=== PATIENT | female | born 1935 | race Caucasian/White ===

== ENCOUNTER → 2016-05-23 | Outpatient (CLI) | payer OTHER ==
[~2016-05-23] MED LIST: ASCO500T3 PO; ASPI-428 PO; ATOR-24 PO; CALC-20 PO; CHOL100010 PO; CHOL100041 PO; ESTR1CRE TOP; METHTAB2 PO; MULT-845 PO; NAPR-1169 PO; NYSCR30 EXT; OXYC1TAB3 PO; PRMVC; PSYL48.511; PSYL55.43 PO; SERT1TAB68 PO; SPIR25TA89 PO
[2016-05-23 13:13] LABS: BASO % 0.4 %; BASO ABS # 0.03 K/uL (0-0.2); COMPLETE YES; EOS % 5.4 %; HEMATOCRIT 42.6 % (37-47); IG% 0.1 %; LYMPH % 20.4 %; LYMPH ABS # 1.43 K/uL (1.2-3.4); MEAN CELL VOLUME 91.8 fL (80-100); MEAN CORPUSCULAR HEMOGLOBIN 30.6 pg (25-34); MEAN CORPUSCULAR HGB CONC 33.3 g/dl (32-36); MEAN PLATELET VOLUME 9.7 fL (7.4-10.4); MONO % 8.3 %; NEUT % 65.4 %; PLATELET COUNT 267 K/uL (130-400); RED BLOOD COUNT 4.64 M/uL (4.2-5.4); WHITE BLOOD COUNT 7.02 K/uL (4.8-10.8)
[2016-05-23 13:34] LABS: ALT/SGPT 27 U/L (12-78); AST/SGOT 18 U/L (15-37); BLOOD UREA NITROGEN 24 mg/dl (7-18); CALCIUM 9.1 mg/dl (8.5-10.1); CARBON DIOXIDE 29 mmol/L (21-32); CHLORIDE 106 mmol/L (98-107); GLUCOSE 83 mg/dl (70-99); POTASSIUM 3.9 mmol/L (3.5-5.1); SODIUM 141 mmol/L (136-145)
[2016-05-23 13:36] LABS: ALB/GLOB RATIO 1.1 (0.9-2); ALKALINE PHOSPHATASE 79 U/L (45-117)
== END | disposition home or self-care (01) ==
LOC: C.LABBC 10:21
PROVIDERS: ATTEND Family Medicine
DX: M81.0 Age-related osteoporosis without current pathological fracture (principal); Z13.0 Encounter for screening for diseases of the blood and blood-forming organs and certain disorders involving the immune mechanism

== ENCOUNTER → 2016-09-19 | Outpatient (CLI) | payer OTHER ==
--- NOTE | 2016-09-19 14:58 | DIAGNOSTIC IMAGING REPORT ---
LEFT SHOULDER MIN 2 VIEWS ROUTINE CLINICAL HISTORY: LEFT SHOULDER PAIN pain COMPARISON: None. DISCUSSION: Moderate degenerative change glenohumeral and acromioclavicular joints. No well-defined acute bony abnormality. Study is negative for fracture. No abnormal soft tissue calcifications. Mild osteopenia. There is no evidence for soft tissue swelling. IMPRESSION: Moderate degenerative change. Mild osteopenia. No acute bony abnormality. Electronically signed by: Wally Mccollum M.D. 09/19/2016 2:57 PM Dictated Date/Time: 09/19/2016 2:56 PM
[2016-09-19 17:08] LABS: ALT/SGPT 31 U/L (12-78); AST/SGOT 20 U/L (15-37); BLOOD UREA NITROGEN 22 mg/dl (7-18); BUN/CREATININE RATIO 22.3 (10-20); CALCIUM 9.1 mg/dl (8.5-10.1); CARBON DIOXIDE 33 mmol/L (21-32); CHLORIDE 102 mmol/L (98-107); CHOLESTEROL 135 mg/dl (0-200); CREATININE 0.98 mg/dl (0.60-1.20); GLUCOSE 83 mg/dl (70-99); POTASSIUM 4.2 mmol/L (3.5-5.1); SODIUM 139 mmol/L (136-145)
[2016-09-19 17:11] LABS: ALB/GLOB RATIO 1.1 (0.9-2); ALKALINE PHOSPHATASE 90 U/L (45-117); HDL CHOLESTEROL 45 mg/dl; LDL CHOLESTEROL CALCULATED 49 mg/dl; TRIGLYCERIDES 204 mg/dl (0-150); VERY LOW DENSITY LIPOPROT CALC 41 mg/dl
== END | disposition home or self-care (01) ==
LOC: C.RADBC 14:37
PROVIDERS: ATTEND Family Medicine
DX: I10 Essential (primary) hypertension (principal); E78.2 Mixed hyperlipidemia; M25.512 Pain in left shoulder

== ENCOUNTER → 2016-10-09 | Outpatient (CLI) | payer OTHER | END | disposition home or self-care (01) | LOC: C.MAMM 09:06 | PROVIDERS: ATTEND Family Medicine | DX: M81.0 Age-related osteoporosis without current pathological fracture (principal); M85.88 Other specified disorders of bone density and structure, other site ==

== ENCOUNTER → 2016-11-07 | Outpatient (CLI) | payer OTHER ==
--- NOTE | 2016-11-07 15:38 | MAMMOGRAPHY REPORT ---
BILATERAL DIGITAL SCREENING MAMMOGRAM WITH CAD: 11/07/2016 CLINICAL HISTORY: Routine screening. Patient has no complaints. TECHNIQUE: Current study was also evaluated with a Computer Aided Detection (CAD) system. Bilateral CC and MLO views were obtained. COMPARISON: Comparison is made to exams dated: 11/07/2015 mammogram, 11/01/2014 mammogram, 10/29/2013 prabhakar mogram, 10/31/2012 mammogram, 10/28/2012 mammogram, and 10/25/2011 mammogram - [facility] BREAST COMPOSITION: There are scattered areas of fibroglandular density in both breasts. FINDINGS: No suspicious masses, calcifications, or areas of architectural distortion are noted in ei ther breast. There has been no significant interval change compared to prior exams. Scattered bilater al benign-appearing calcifications are not significantly changed. A pacemaker projects over the left pectoralis muscle. IMPRESSION: ACR BI-RADS CATEGORY 2: BENIGN There is no mammographic evidence of malignancy. A 1 year screening mammogram is recommended. The pa tient will receive written notification of the results. Approximately 10% of breast cancers are not detected with mammography. A negative mammographic report should not delay biopsy if a clinically suggestive mass is present. Delmy Louise M.D. /:11/07/2016 14:56:34 Piecer: Darshana BUNCH)(M), [facility] letter sent: Normal 1/2 BI-RADS Code: ACR BI-RADS Category 2: Benign
== END | disposition home or self-care (01) ==
LOC: C.MAMM 13:57
PROVIDERS: ATTEND Family Medicine
DX: Z12.31 Encounter for screening mammogram for malignant neoplasm of breast (principal)

== ENCOUNTER → 2016-11-09 | Outpatient (CLI) | payer OTHER ==
--- NOTE | 2016-11-09 13:27 | DIAGNOSTIC IMAGING REPORT ---
RIGHT VENOUS DOPP LOWER EXT UNILAT CLINICAL HISTORY: 80 years-old Female presenting with right leg pain and clinical concern for deep venous thrombosis. TECHNIQUE: Real-time grayscale and color and spectral Doppler ultrasound imaging of the right lower extremity was performed. Compression and augmentation were also utilized. COMPARISON: None. FINDINGS: Right: Common femoral vein: Patent. Femoral vein: Patent. Greater saphenous vein: Patent. Popliteal vein: Patent. Calf veins: Patent. Other: Complex anechoic avascular collection in the popliteal fossa measuring 4.2 x 6.3 x 1.7 cm. IMPRESSION: 1. No evidence of deep venous thrombosis right lower extremity. 2. Complex cystic lesion in the popliteal fossa. In the absence of infectious symptoms, this may represent a partially septated Hernandez's cyst or chronic hematoma. Electronically signed by: Nahum Asencio M.D. 11/09/2016 1:25 PM Dictated Date/Time: 11/09/2016 1:22 PM
== END | disposition home or self-care (01) ==
LOC: C.ULTRBC 12:46
PROVIDERS: ATTEND Physician Assistant
DX: M79.604 Pain in right leg (principal)

== ENCOUNTER 2016-11-10 10:49 | Emergency (ER) | payer OTHER ==
[~2016-11-10] VITALS: Ht 154.9 cm; Wt 62.0 kg
[~2016-11-10 10:49] MED LIST changes: -CHOL100041 PO; -NAPR-1169 PO; -OXYC1TAB3 PO; -PRMVC; -PSYL48.511
[2016-11-10 10:53] VITALS: Ht 154.9 cm; Wt 62.0 kg
[2016-11-10] MEDS ORDERED: CHOL100041 PO (11:12)
[2016-11-10] MEDS ORDERED: PSYL48.511 (11:12)
[2016-11-10] MEDS ORDERED: PRMVC (11:12)
[2016-11-10 12:00] VITALS: BP 149/68; PULSE 80; TEMP 36.9; O2SAT 93
--- NOTE | 2016-11-10 12:01 | EMERGENCY ROOM VISIT NOTE ---
ED Visit Note First contact with patient: 12:00 I did evaluate and examine this patient myself. I did guide management for the patient. I agree with the APC's assessment as discussed. Please see the APC's dictation for further details. The patient is presenting with right knee pain. She has no joint swelling or signs of septic arthritis. There is no increased warmth to the knee. She did have an ultrasound yesterday which showed a cyst behind her knee. This is where she appears to be most tender. She will follow up with [facility] orthopedics. I did offer an x-ray here but she stated that she would prefer to have it done at the orthopedic office.
[2016-11-10] MEDS ORDERED: OXYC1TAB3 PO (12:03)
[2016-11-10] MEDS ORDERED: NAPR-1169 PO (12:03)
--- NOTE | 2016-11-10 12:09 | EMERGENCY ROOM VISIT NOTE ---
ED Visit Note First contact with patient: 11:39 CHIEF COMPLAINT: right knee pain HISTORY OF PRESENT ILLNESS: This 80-year-old female patient presents to the emergency department complaining of 2 day history of right knee pain. The patient did contact her PCP, and was offered an appointment for next week. She did speak with the physician assistant oceanographer who ordered an ultrasound of the right leg due to swelling and discomfort. The patient had this ultrasound completed yesterday which showed a Hernandez's cyst. The patient denies specific injury. She states the pain is radiating away from her knee down into her calf, occasionally causing cramping in her calf. The patient does report swelling swelling in the posterior aspect of the knee, but denies bruising. There is pain posteriorly and laterally on palpation. They rate the pain as burning and 9/10. The patient states they are able to walk on it however pain is worsened with weightbearing. The patient has been using a cane and her 's wheelchair when necessary to get around. No numbness or tingling. No previous injuries to this knee. No ankle, foot or hip pain. REVIEW OF SYSTEMS: A 6 system review of systems was completed with positives and pertinent negatives listed in the HPI. ALLERGIES: Tramadol, meloxicam, sulfa, Fosamax, rapaflo, macrobid MEDICATIONS: Aspirin, calcium plus vitamin D, Zoloft, multivitamin, Aldactone, vitamins C, Lipitor, nystatin, psyllium, vitamin D, Premarin, methenamine hippurate PMH: Heart disease, chronic urinary tract infections, hyperlipidemia, candidiasis SOCIAL HISTORY: Lives locally with her family. She denies drug, alcohol, tobacco use. PHYSICAL EXAM: Vital Signs: Reviewed Nurse's notes, vital signs stable. GENERAL : 80-year-old female, no acute distress, but appears in pain, well-developed, well-nourished. MENTAL STATUS: Alert, oriented to person place and time, and cooperative. MUSCULOSKELETAL: The right knee is swollen. There is no ecchymosis. There is no joint effusion present. The patient is tender posteriorly. There is no joint line tenderness. The patella does subluxate. Range of motion is limited due to pain. Strength of the quads and hamstrings is 5/5. Rocio's is negative. Bebe's and Anterior Drawer tests are negative. There is no discomfort or laxity with varus and valgus stressing. The foot and toes are warm and well-perfused. Dorsalis pedis pulse 2+. Sensation to pain and light touch is intact. Capillary refill less than 2 seconds. EMERGENCY DEPARTMENT COURSE: I examined the patient. I reviewed the patient's ultrasound which was performed yesterday. Discussed the case with Dr. Shook who is in agreement with assessment and plan. He did evaluate the patient. The patient was started on pain medication due to cyst and advised to follow-up with orthopedics at her appointment on Saturday. The patient was discharged home in good condition. I did consult with PDMP and did not find suspicious narcotics prescriptions or medications in the registry. The patient was given a short course of pain medication until she is able to follow-up with orthopedics. DIFFERENTIAL DIAGNOSIS: joint effusion, DVT, fracture, osteoarthritis, Hernandez's cyst, malignancy, and others. DIAGNOSIS: Bakers cyst DISCHARGE INSTRUCTIONS: Please use your cane to assist you with ambulation due to discomfort of right leg. For pain control, you can use acetaminophen in addition to the Naprosyn you were prescribed. You may take 1000 mg acetaminophen every 6-8 hours as needed. I would stagger this with the Naprosyn he will be taking twice daily. Please do not exceed 3000 mg acetaminophen in 24 hours. This includes acetaminophen from all sources. You've been prescribed OxyIR to use for breakthrough pain. You may take 1 tablet every 6 hours for pain not controlled by Naprosyn and acetaminophen. Please do not drive, operate machinery, or other excessive activities while taking this medication. It is illegal for you to drive while taking narcotic medication. Please be cautious with this medication, as it can increase the risk of falls in elderly patients. Please follow up with orthopedics for your regularly scheduled appointment on Saturday. Please also follow up with your PCP for further evaluation and management of the discomfort. Return to the emergency department for worsening symptoms. You should also return if you experience increased swelling, redness, streaking, difficulty with ambulation, fever, chills, excessive swelling in the knee joint, or other associated symptoms. Current/Historical Medications Scheduled Ascorbic Acid (Vitamin C), 500 MG PO BID Aspirin (Ecotrin Low Strength), 81 MG PO QAM Atorvastatin (Lipitor), 40 MG PO HS Calcium Carbonate-Vitamin D (Calcium 600 + D), 1 TAB PO QAM Cholecalciferol (D 1000), 1,000 UNITS PO DAILY Multiple Vitamins W/ Minerals (Centrum Silver Adult 50+), 1 TAB PO QAM Naproxen (Naprosyn), 500 MG PO BID Nystatin (Nystatin Cream), 0 EXT DAILY Sertraline Hcl (Zoloft), 100 MG PO QAM Spironolactone (Aldactone), 25 MG PO BID Scheduled PRN Estrogens, Conjugated (Premarin), for . Oxycodone Ir (Roxicodone Ir), 1 TAB PO Q6H PRN for Pain Miscellaneous Medications Psyllium (Eq Fiber Therapy) Allergies Coded Allergies: Silodosin (Verified Allergy, Unknown, N/V, 11/10/16) Sulfa Drugs (Verified Allergy, Unknown, Welts/Rash, 11/10/16) Reported by PT Meloxicam (Verified Adverse Reaction, Unknown, Nausea, 11/10/16) Reported by PT. Tramadol (Verified Adverse Reaction, Unknown, Nausea, 11/10/16) Reported by PT. Uncoded Allergies: SEASONAL ALLERGIES (Allergy, Unknown, Unknown, 04/17/14) Reported by PT. Vital Signs Date Time Temp Pulse Resp B/P (MAP) Pulse Ox O2 Delivery O2 Flow Rate FiO2 11/10/16 12:00 36.9 80 16 149/68 93 11/10/16 10:53 36.9 80 16 149/68 93 Room Air Departure Information Impression Primary Impression: Hernandez's cyst of knee Dispostion Home / Self-Care Condition GOOD Prescriptions Oxycodone Ir (Roxicodone Ir) 5 Mg Tab 1 TAB PO Q6H Y for Pain, #12 TAB For Initial Treatment Prov: Rosi Fernández PA-C 11/10/16 Naproxen (Naprosyn) 500 Mg Tab 500 MG PO BID, #30 TAB Prov: Rosi Fernández PA-C 11/10/16 Referrals No Doctor, Assigned (PCP) Nahum Donohue M.D. Patient Instructions ED Cyst Mary, [facility] Additional Instructions Please use your cane to assist you with ambulation due to discomfort of right leg. For pain control, you can use acetaminophen in addition to the Naprosyn you were prescribed. You may take 1000 mg acetaminophen every 6-8 hours as needed. I would stagger this with the Naprosyn he will be taking twice daily. Please do not exceed 3000 mg acetaminophen in 24 hours. This includes acetaminophen from all sources. You've been prescribed OxyIR to use for breakthrough pain. You may take 1 tablet every 6 hours for pain not controlled by Naprosyn and acetaminophen. Please do not drive, operate machinery, or other excessive activities while taking this medication. It is illegal for you to drive while taking narcotic medication. Please be cautious with this medication, as it can increase the risk of falls in elderly patients. Please follow up with orthopedics for your regularly scheduled appointment on Saturday. Please also follow up with your PCP for further evaluation and management of the discomfort. Return to the emergency department for worsening symptoms. You should also return if you experience increased swelling, redness, streaking, difficulty with ambulation, fever, chills, excessive swelling in the knee joint, or other associated symptoms. Problem Qualifiers Primary Impression: Hernandez's cyst of knee Laterality: right Qualified Codes: M71.21 - Synovial cyst of popliteal space [Hernandez], right knee
== END 2016-11-10 12:00 | disposition home or self-care (01) ==
LOC: C.EDB 10:52 → C.EDC 12:00
DX: M71.21 Synovial cyst of popliteal space [Baker], right knee (principal); E78.5 Hyperlipidemia, unspecified; Z87.440 Personal history of urinary (tract) infections; Z79.82 Long term (current) use of aspirin; Z79.899 Other long term (current) drug therapy

== ENCOUNTER → 2016-11-13 | Outpatient (CLI) | payer OTHER ==
[~2016-11-13] MED LIST changes: -CHOL100010 PO; +CHOL100041 PO; -ESTR1CRE TOP; -METHTAB2 PO; +NAPR-1169 PO; +OXYC1TAB3 PO; +PRMVC; +PSYL48.511; -PSYL55.43 PO
== END | disposition home or self-care (01) ==
LOC: C.RDSM 14:35
PROVIDERS: ATTEND Physical Medicine & Rehabilitation Sports Medicine
DX: M25.561 Pain in right knee (principal)

== ENCOUNTER 2020-09-15 08:52 | Inpatient (IN) ==
--- NOTE | 2020-08-23 10:17 | PAT Medication Instructions ---
Medication Instructions Date of Service August 23, 2020 Home Medications Calcium 600 + D(3) 1 cap PO QAM Centrum Silver Women 1 tab PO DAILY atorvastatin 40 mg PO PM cholecalciferol (vitamin D3) [Vitamin D3] 1,000 unit PO DAILY sertraline 150 mg PO QAM spironolactone 12.5 mg PO QAM vitamin C-biotin 1 tab PO BID apixaban [Eliquis] 5 mg PO BID ASK your prescriber and surgeon apixaban [Eliquis] 5 mg PO BID (in order for spinal anesthesia, Apixaban/Eliquis needs to be stopped 72 hours/3 days before surgery. Please check if okay with doctor that prescribes this to you) DO NOT take the morning of surgery Calcium 600 + D(3) 1 cap PO QAM Centrum Silver Women 1 tab PO DAILY cholecalciferol (vitamin D3) [Vitamin D3] 1,000 unit PO DAILY spironolactone 12.5 mg PO QAM vitamin C-biotin 1 tab PO BID Take morning of surgery With a small sip of water, OTHERWISE NOTHING TO EAT OR DRINK AFTER MIDNIGHT: sertraline 150 mg PO QAM Take evening before surgery atorvastatin 40 mg PO PM vitamin C-biotin 1 tab PO BID Other Notes If you have any questions please call us at [phone] or [phone] or [phone] or [phone]
--- NOTE | 2020-08-26 14:11 | Anesthesiology Consultation ---
Date of Service August 26, 2020 Assessment & Plan (1) Encounter for pre-operative examination: COVID screening: Per assessment on 08/26: Travel screen negative, no known COVID- 19 positive contacts or current COVID-19 related symptoms. Patient fully vaccinated. Surgeon arranging preop COVID testing. Awaiting results. Chart Review Chart Review: Acceptable Risk for Surgery (pending surgeon-ordered PCP and cardiology clearances) and Patient seen in Pre Admission Testing Teaching & Discussion Pre-Anesthesia Teaching/Discussion Notes: Instructed NPO after midnight before surgery,except medications with 15 cc of water. Medication instructions provided according to the PAT guidelines. History Surgery Operation Date: 09/15/20 07:15 Proposed Procedures p Left Total Hip Arthroplasty Cemented - Nahum Mathews MD Height/Weight Height: 5 ft 1 in Weight: 60.6 kg Allergies Allergy/AdvReac Type Severity Reaction Status Date / Time naproxen Allergy Intermediate Rash Verified 08/15/20 12:11 nitrofurantoin Allergy Intermediate Rash Verified 08/15/20 12:11 [From Macrobid] Sulfa (Sulfonamide Allergy Intermediate Welts/Rash Verified 08/15/20 12:11 Antibiotics) meloxicam AdvReac Mild Nausea Verified 08/15/20 12:11 silodosin AdvReac Mild N/V Verified 08/15/20 12:11 tramadol AdvReac Mild Nausea Verified 08/15/20 12:11 Medications Home Medications Medication Instructions Recorded Confirmed Last Taken Calcium 600 + D(3) 1 cap PO QAM 11/20/18 08/15/20 12/29/18 Centrum Silver Women 1 tab PO DAILY 11/20/18 08/15/20 12/29/18 atorvastatin 40 mg PO PM 11/20/18 08/15/20 12/29/18 cholecalciferol (vitamin D3) 1,000 unit PO DAILY 11/20/18 08/15/20 12/08/18 [Vitamin D3] sertraline 150 mg PO QAM 11/20/18 08/15/20 12/29/18 spironolactone 12.5 mg PO QAM 11/20/18 08/15/20 12/29/18 vitamin C-biotin 1 tab PO BID 11/20/18 08/15/20 12/29/18 apixaban [Eliquis] 5 mg PO BID 08/15/20 08/15/20 Unknown Past Medical History Medical History Anxiety Atrial fibrillation Paroxysmal Depression Diverticular disease Hyperlipidemia Hypertension Osteoarthritis Pacemaker Medtronic (initial implant 1998, generator exchanges 2006 and 2015). Implanted 2/2 SSS and sinoatrial quynh disease- Follows with Dr. Brunson/MURTAZA Exercise / Class Metabolic Activity III < 4 Walking/Shop/Light housework (+ walker) Past Family History Family History Mother Cancer Past Surgical History Surgical History History of carpal tunnel release Left + trigger finger release History of colonoscopy History of hysterectomy History of right cataract surgery History of surgery on wrist Left Hx of left cataract extraction HX: benign breast biopsy Past Anesthesia History No Hx of Anesthesia Complications and No Family Hx of Anesthesia Complications History of PONV No Hx of PONV and No Hx of Motion Sickness Social History Smoking Status: Never smoker Do You Dip or Chew Tobacco: No Hx Alcohol Use: No Hx Substance Use: No substance use type: does not use Review of Systems Patient denies chest pain, shortness of breath, dyspnea on exertion, fever, chills, cough, wheezing, palpitations. Physical Exam Vital Signs VITALS BP 126/64 P 73 TEMP 98.3 SP02 97%RA RESP 18 PHYSICAL Full cervical extension range of motion. Full TMJ range of motion. TMD 2.5 finger breaths Mallampati Score 3 Dentition: + upper/lower plate Lungs: clear throughout to auscultation Cardiac: irregular rate, regular rhythm, II/ systolic murmur Spine: normal Carotid arteries: negative bruit Extremities: no edema Testing Laboratory Results 08/26/20 14:50 08/26/20 14:50 PT 11.4 Seconds (9.0-12.0) 08/26/20 14:50 INR 1.1 (0.9-1.1) 08/26/20 14:50 APTT 31.6 Seconds (21.0-31.0) H 08/26/20 14:50 Urine Color Yellow 08/26/20 14:50 Urine Appearance Clear (Clear) 08/26/20 14:50 Urine pH 5.5 (4.5-7.5) 08/26/20 14:50 Ur Specific [place] 1.016 (1.000-1.030) 08/26/20 14:50 Urine Protein Negative (Negative) 08/26/20 14:50 Urine Glucose (UA) Negative (Negative) 08/26/20 14:50 Urine Ketones Negative (Negative) 08/26/20 14:50 Urine Nitrite Negative (Negative) 08/26/20 14:50 Ur Leukocyte Esterase Trace (Negative) H 08/26/20 14:50 Urine WBC (Auto) 1-5 /hpf (0-5) 08/26/20 14:50 Urine RBC (Auto) 0-4 /hpf (0-4) 08/26/20 14:50 U Hyaline Cast (Auto) 1-5 /lpf (0-5) 08/26/20 14:50 U Epithel Cells (Auto) 20-30 /lpf (0-5) H 08/26/20 14:50 Urine Bacteria (Auto) Negative (Negative) 08/26/20 14:50 Blood Type O Positive 08/26/20 14:50 Antibody Screen NEGATIVE 08/26/20 14:50 08/26/20 14:50 Urine Culture - Preliminary Urine,Clean Catch Gram negative bacilli Surgeon's office made aware of abnormal UA/culture. Electrocardiogram Date: 08/26/20 Atrial sensed ventricular paced rhythm at 67bpm. Echocardiogram Date: 07/29/18 EF 63%. Septal motion is abnormal consistent with right ventricular pacemaker. The regional left ventricular wall motion is otherwise normal. LVEF 63%. Grade 1 diastolic dysfunction. Mild AR/TR. Mildly enlarged proximal ascending thoracic aorta. Other Testing Pacer check (06/09/20): Dual-chamber. Medtronic. AP 4.8%. RVP 100%. 8 years battery longevity. Mode DDD. Normal dual-chamber pacemaker function. Stable pacing and sensing thresholds. Adequate battery reserve.
[2020-08-26 15:41] LABS: Basophils # (auto) 0.03 K/uL (0-0.2); Basophils % (auto) 0.3 %; Eosinophils # (auto) 0.31 K/uL (0-0.5); Eosinophils % (auto) 3.3 %; Hematocrit (blood only) 40.7 % (37-47); Hemoglobin 13.5 g/dL (12.0-16.0); Immature Granulocytes # (auto) 0.02 K/uL (0.00-0.02); Immature Granulocytes % (auto) 0.2 %; Lymphocytes # (auto) 1.33 K/uL (1.2-3.4); Lymphocytes % (auto) 14.1 %; Mean Corpuscular Hemoglobin 29.5 pg (25-34); Mean Corpuscular Hgb Conc 33.2 g/dL (32-36); Mean Corpuscular Volume 88.9 fL (80-100); Mean Platelet Volume 9.2 fL (7.4-10.4); Monocytes # (auto) 0.54 K/uL (0.11-0.59); Monocytes % (auto) 5.7 %; Neutrophils # (auto) 7.18 K/uL (1.4-6.5); Neutrophils % (auto) 76.4 %; Platelet Count 307 K/uL (130-400); RDW Coefficient of Variation 13.7 % (11.5-14.5); RDW Standard Deviation 44.6 fL (36.4-46.3); Red Blood Count 4.58 M/uL (4.2-5.4); White Blood Count 9.41 K/uL (4.8-10.8)
[2020-08-26 15:50] LABS: BUN Creatinine Ratio 21.3 (10-20); Calcium 8.9 mg/dl (8.5-10.1); Creatinine Clr Calc Pharmacy 45.2 ml/min; Est GFR (African American) 82.9; Est GFR (Non-African American) 71.5
[2020-08-26 15:55] LABS: Appearance Urine Clear (Clear); Bacteria Urine Automated Negative (Negative); Bilirubin Urine Negative (Negative); Blood Urine 2+ (Negative); Color Urine Yellow; Epithelial Cell Urine Auto 20-30 /lpf (0-5); Glucose Urine UA Negative (Negative); INR 1.1 (0.9-1.1); Ketones Urine Negative (Negative); Leukocyte Esterase Urine Trace (Negative); Nitrite Urine Negative (Negative); Partial Thromboplastin Ratio 1.2; Partial Thromboplastin Time 31.6 Seconds (21.0-31.0); Protein Urine Negative (Negative); Prothrombin Time 11.4 Seconds (9.0-12.0); RBC Urine Automated 0-4 /hpf (0-4); Specific Gravity Urine 1.016 (1.000-1.030); Urobilinogen Urine Negative (Negative); pH Urine 5.5 (4.5-7.5)
--- NOTE | 2020-08-26 16:08 | Electrocardiogram Report ---
Test Reason : Blood Pressure : / mmHG Vent. Rate : 067 BPM Atrial Rate : 067 BPM P-R Int : 120 ms QRS Dur : 170 ms QT Int : 442 ms P-R-T Axes : 072 -72 077 degrees QTc Int : 467 ms Atrial-sensed ventricular-paced rhythm Abnormal ECG When compared with ECG of 22-SEP-2014 11:34, Vent. rate has decreased BY 27 BPM Confirmed by Donnell Vila ([id number]) on 08/26/2020 4:08:15 PM Referred By: Nahum Mathews Confirmed By:Donnell Vila
--- NOTE | 2020-08-31 13:48 | History & Physical Report ---
Date of Service August 31, 2020 Assessment & Plan Admission and Anticipated Discharge Date Admission Date: PRE-OP Diagnosis: Left hip osteoarthritis Planned Procedure: Left total hip arthroplasty, cemented Plan: Patient is scheduled to undergo this procedure at [facility] with Dr. Nahum Mathews on September 15, 2020. Risks and complications of the procedure such as: Infection, bleeding, pain, scarring, nerve blood vessel damage, weakness, wound problems, stiffness, incomplete relief of symptoms, hardware failure, hardware loosening, wear, fracture, tendon or ligament injury, dislocation, leg length inequality, blood clots, embolism, heart attack, stroke and were explained to the patient at her visit today by Dr. Mathews. Informed consent from the procedure was obtained. Patient also understands risks of proceeding with surgical intervention during the COVID-19 pandemic. Currently she is asymptomatic and understands that she will need to be tested 1 week prior to surgery. Patient states that she has a medical clearance bismark ointment with Dr. Correa's PA on August 29. She also has a cardiac clearance appointment with Wally Brunson's PA on the September 06. Patient is scheduled to meet with anesthesia at the hospital later today. While there she will obtain a CBC with differential, complete metabolic panel, PT/INR, blood type and screen, urinalysis, urine culture and sensitivity, EKG, hemoglobin A1c and a nasal culture for MRSA. During today's visit we reviewed the total hip packet, discussed total hip precautions talked about purchasing a hip kit, I raised toilet seat and a shower chair for after surgery use. Patient states that she has a walker she will bring with her on the day of the procedure. She states that she was already watched one of the Zoom lectures offered by [facility] in regards to her replacement surgery. She is also discussed the antibiotic use with her dentist prior to dental procedures or cleanings. I advised the patient that she will be discharged home on an opioid analgesic for postoperative pain control, and anti-inflammatory medication and we recommend purchasing extra strength Tylenol for supplemental pain control. She will restart her Eliquis for DVT prophylaxis. Patient is scheduled for 2- week postoperative follow-up with myself on September 30 at 1:30 PM. If she has questions or concerns should arise prior to her surgery, she will contact clini c. History of Present Illness Chief Complaint: Chief Complaint: Left hip pain Primary Care Provider: Elyssa Tolliver DO History of Present Illness (including history relevant to procedure): This 84-year-old female presents the clinic today for preoperative history and physical. She has had quite severe pain in her left hip since the fall of 2019. She has tried taking Tylenol and doing physical therapy since March. Unfortunately, this has not helped. She feels aching in her groin. In the last day or so, she has had some pain going all the way down her leg, but typically the pain is all in her groin. She lives with her , who has some medical problems as well. She has family nearby, however. At their house, the laundry is down in the basement, but otherwise everything is on 1 level. She has medical history significant for arrhythmia that she has been on a pacemaker for many years. She has been on Eliquis for the last 1 year due to what sounds like some motion abnormalities on echocardiogram. She has never personally had a blood clot, she states. She does state that she bruises easily, however. Review Of Systems: A 14 point review of systems performed is unremarkable except for those things stated in the HPI and past medical history. Past Medical History: Problems: Pre-op exam Arthritis of left hip Lumbar spondylosis Primary osteoarthritis of right knee Spondylosis Lumbago Fractured coccyx Left carpal tunnel syndrome Trigger finger Trigger finger Hand paresthesia Radius distal fracture Hyperlipidemia Asthma Anxiety/depression Pacemaker Procedure History Procedure Procedure Date Comments Pacemaker D&C Jaw surgery Hysterectomy Carpal tunnel release Trigger finger release Cataract excision 1998, 2006, 2016 1976 1997 1983 2015 2014 2018 Allergies and Sensitivities: Fosamax(unknown) nitrofurantoin(unknown) Macrobid(unknown) Naprosyn(vomiting) Rapaflo meloxicam traMADol sulfa drugs Current Home Meds: (Last Updated 08/26 13:09) apixaban (Eliquis 5 mg oral tablet) 5 mg PO bid ascorbic acid (Vitamin C) 50 mg po bid aspirin (Ecotrin) 81 mg PO Daily atorvastatin 40 mg PO qhs calcium and vitamin D combination (Calcium 600+D) 1 tab PO tid ergocalciferol (Vitamin D2) multivitamin with iron (Iron 100 Plus) multivitamin with minerals (Centrum Silver Ultra Women's) sertraline 100 mg PO Daily spironolactone 25 mg PO unknown medication nystatin and triamcinolone acetonige cream when needed for prevention of fungal infection Initial Wt: 08/26 60.7 kg 134 lb Allergies Allergy/AdvReac Type Severity Reaction Status Date / Time naproxen Allergy Intermediate Rash Verified 08/15/20 12:11 nitrofurantoin Allergy Intermediate Rash Verified 08/15/20 12:11 [From Macrobid] Sulfa (Sulfonamide Allergy Intermediate Welts/Rash Verified 08/15/20 12:11 Antibiotics) meloxicam AdvReac Mild Nausea Verified 08/15/20 12:11 silodosin AdvReac Mild N/V Verified 08/15/20 12:11 tramadol AdvReac Mild Nausea Verified 08/15/20 12:11 Home Medications Medication Instructions Recorded Confirmed Type Calcium 600 + D(3) 1 cap PO QAM 11/20/18 08/15/20 History Centrum Silver Women 1 tab PO DAILY 11/20/18 08/15/20 History atorvastatin 40 mg PO PM 11/20/18 08/15/20 History cholecalciferol (vitamin D3) 1,000 unit PO DAILY 11/20/18 08/15/20 History [Vitamin D3] sertraline 150 mg PO QAM 11/20/18 08/15/20 History spironolactone 12.5 mg PO QAM 11/20/18 08/15/20 History vitamin C-biotin 1 tab PO BID 11/20/18 08/15/20 History apixaban [Eliquis] 5 mg PO BID 08/15/20 08/15/20 History Past Med/Surg History Medical History Anxiety Atrial fibrillation Paroxysmal Depression Diverticular disease Hyperlipidemia Hypertension Osteoarthritis Pacemaker Medtronic (initial implant 1998, generator exchanges 2006 and 2015). Implanted 2/2 SSS and sinoatrial quynh disease- Follows with Dr. Brunson/Michael[facility] Surgical History History of carpal tunnel release Left + trigger finger release History of colonoscopy History of hysterectomy History of right cataract surgery History of surgery on wrist Left Hx of left cataract extraction HX: benign breast biopsy Family History Mother Cancer Social History Smoking Status: Never smoker Second Hand Exposure: No; Hx Alcohol Use: No Hx Substance Use: No Preferred Language: Panamanian Communication Ability: Effective Welfare Service Aide Required: No Beliefs That Will Affect Care: None Current Living Situation: Spouse Feels Safe at Home: Yes Assistive Devices: Glasses Review of Systems All systems reviewed & are unremarkable except as noted in Subjective Physical Exam Physical Exam: Physical Exam: (relevant to the procedure, including heart and lung evaluation) General: Alert and oriented x3 with proper grooming and hygiene Eyes: Pupils are equal reactive to light with accommodation. Extraocular muscles are intact Throat: Deferred due to COVID-19 precautions Cardiac: Regular rate and rhythm with no murmurs or gallops appreciated Lungs: Clear to auscultation throughout with no wheezing, rales or rhonchi Abdomen: Nonobese, nondistended, nontender with normal active bowel sounds Extremities: Left hip exam reveals the patient to have a positive Onofre test with a flexion contracture of approximately 15 degrees. She flexes up to 85 degrees. External rotation is limited to 40 degrees. Internal rotation is to 0 degrees. She has a positive Stinchfield test. Neuro: Cranial nerves II through XII are intact no motor or sensory deficit Skin: Normal in appearance with no open skin areas or discharge Results & Data ([facility]) Laboratory Results Lab Results 08/26/20 08/26/20 08/26/20 Range/Units 14:25 14:50 14:50 WBC 9.41 (4.8-10.8) K/uL RBC 4.58 (4.2-5.4) M/uL Hgb 13.5 (12.0-16.0) g/dL Hct 40.7 (37-47) % MCV 88.9 (80-100) fL MCH 29.5 (25-34) pg MCHC 33.2 (32-36) g/dL RDW Std Deviation 44.6 (36.4-46.3) fL RDW Coeff of Leslye 13.7 (11.5-14.5) % Plt Count 307 (130-400) K/uL MPV 9.2 (7.4-10.4) fL Immature Gran % (Auto) 0.2 % Neut % (Auto) 76.4 % Lymph % (Auto) 14.1 % [place] % (Auto) 5.7 % Eos % (Auto) 3.3 % Baso % (Auto) 0.3 % Neut # (Auto) 7.18 H (1.4-6.5) K/uL Lymph # (Auto) 1.33 (1.2-3.4) K/uL [place] # (Auto) 0.54 (0.11-0.59) K/uL Eos # (Auto) 0.31 (0-0.5) K/uL Baso # (Auto) 0.03 (0-0.2) K/uL Immature Gran # (Auto) 0.02 (0.00-0.02) K/uL PT (9.0-12.0) Seconds INR (0.9-1.1) APTT (21.0-31.0) Seconds PTT Ratio Sodium (136-145) mmol/L Potassium (3.5-5.1) mmol/L Chloride (98-107) mmol/L Carbon Dioxide (21-32) mmol/L Anion Gap (3-11) BUN (7-18) mg/dl Creatinine (0.6-1.2) mg/dl Est Cr Clr Drug Dosing ml/min Est GFR ( Amer) Est GFR (Non-Af Amer) BUN/Creatinine Ratio (10-20) Glucose (70-99) mg/dl Calcium (8.5-10.1) mg/dl Urine Color Urine Appearance (Clear) Urine pH (4.5-7.5) Ur Specific [place] (1.000-1.030) Urine Protein (Negative) Urine Glucose (UA) (Negative) Urine Ketones (Negative) Urine Blood (Negative) Urine Nitrite (Negative) Urine Bilirubin (Negative) Urine Urobilinogen (Negative) Ur Leukocyte Esterase (Negative) Urine WBC (Auto) (0-5) /hpf Urine RBC (Auto) (0-4) /hpf U Hyaline Cast (Auto) (0-5) /lpf U Epithel Cells (Auto) (0-5) /lpf Urine Bacteria (Auto) (Negative) Nasal Screen MRSA (PCR) Negative (Negative) Blood Type O Positive Antibody Screen NEGATIVE 08/26/20 08/26/20 08/26/20 Range/Units 14:50 14:50 14:50 WBC (4.8-10.8) K/uL RBC (4.2-5.4) M/uL Hgb (12.0-16.0) g/dL Hct (37-47) % MCV (80-100) fL MCH (25-34) pg MCHC (32-36) g/dL RDW Std Deviation (36.4-46.3) fL RDW Coeff of Leslye (11.5-14.5) % Plt Count (130-400) K/uL MPV (7.4-10.4) fL Immature Gran % (Auto) % Neut % (Auto) % Lymph % (Auto) % [place] % (Auto) % Eos % (Auto) % Baso % (Auto) % Neut # (Auto) (1.4-6.5) K/uL Lymph # (Auto) (1.2-3.4) K/uL [place] # (Auto) (0.11-0.59) K/uL Eos # (Auto) (0-0.5) K/uL Baso # (Auto) (0-0.2) K/uL Immature Gran # (Auto) (0.00-0.02) K/uL PT 11.4 (9.0-12.0) Seconds INR 1.1 (0.9-1.1) APTT 31.6 H (21.0-31.0) Seconds PTT Ratio 1.2 Sodium 140 (136-145) mmol/L Potassium 4.0 (3.5-5.1) mmol/L Chloride 109 H (98-107) mmol/L Carbon Dioxide 29 (21-32) mmol/L Anion Gap 2.0 L (3-11) BUN 16 (7-18) mg/dl Creatinine 0.76 (0.6-1.2) mg/dl Est Cr Clr Drug Dosing 45.2 ml/min Est GFR ( Amer) 82.9 Est GFR (Non-Af Amer) 71.5 BUN/Creatinine Ratio 21.3 H (10-20) Glucose 84 (70-99) mg/dl Calcium 8.9 (8.5-10.1) mg/dl Urine Color Yellow Urine Appearance Clear (Clear) Urine pH 5.5 (4.5-7.5) Ur Specific [place] 1.016 (1.000-1.030) Urine Protein Negative (Negative) Urine Glucose (UA) Negative (Negative) Urine Ketones Negative (Negative) Urine Blood 2+ H (Negative) Urine Nitrite Negative (Negative) Urine Bilirubin Negative (Negative) Urine Urobilinogen Negative (Negative) Ur Leukocyte Esterase Trace H (Negative) Urine WBC (Auto) 1-5 (0-5) /hpf Urine RBC (Auto) 0-4 (0-4) /hpf U Hyaline Cast (Auto) 1-5 (0-5) /lpf U Epithel Cells (Auto) 20-30 H (0-5) /lpf Urine Bacteria (Auto) Negative (Negative) Nasal Screen MRSA (PCR) (Negative) Blood Type Antibody Screen Diagnostic Findings Studies (relevant to the procedure): X-rays that were done back in February 2020 are reviewed. These showed [id number] arthritis in the left hip. She also has moderately severe right hip arthritis as well.
[~2020-09-15 08:52] MED LIST changes: +ACETAMINOPHEN 500 MG TAB PO SCH; -ASCO500T3 PO; -ASPI-428 PO; -ATOR-24 PO; +BUPIVACAINE 0.5 % 5 MG/1 ML PF 10ML VIAL ONE; -CALC-20 PO; -CHOL100041 PO; +FAMOTIDINE 20 MG TAB PO SCH; +LR 15ML/HR IV SCH; +LR 60ML/HR IV SCH; +METOCLOPRAMIDE HCL 10 MG TABLET PO SCH; -MULT-845 PO; -NAPR-1169 PO; -NYSCR30 EXT; -OXYC1TAB3 PO; -PRMVC; -PSYL48.511; +ROPIVACAINE 0.5% HCL/PF 150 MG, BUPIVACAINE 0.75% MPF 20 ML, EPINEPHrine 0.15 MG, Ketor... INFIL SCH; -SERT1TAB68 PO; -SPIR25TA89 PO; +Scopolamine 1 MG TDSY TD SCH; +TRANEXAMIC ACID 1,000 MG **IV Intra-op IV SCH; +TRANEXAMIC ACID 1,000 MG **IV Pre-op IV SCH; +ceFAZolin 2000MG 2,000 MG/15 ML SYR IV SCH; +dexAMETHasone 4 MG TAB PO SCH
--- NOTE | 2020-09-15 09:36 | History & Physical Bridge Note ---
Date of Service September 15, 2020 History & Physical Bridge Note I have examined the patient, reviewed the History & Physical and in the interval since the performance of the History & Physical I have noted the following changes of clinical significance: no changes noted
[2020-09-15] MEDS ORDERED: ePHEDrine sulfate 50 MG/ML AMP IV PRN (10:43)
[2020-09-15] MEDS ORDERED: ONDANSETRON INJ 2 MG/ML 2 ML VIAL IV PRN ×2 (10:43→14:19)
[2020-09-15] MEDS ORDERED: ATROPINE SULFATE 0.1 MG/ML 10ML SYR IV PRN (10:43)
[2020-09-15] MEDS ORDERED: fentaNYL citrate 100 MCG/2 ML VIAL IV PRN (10:43)
[2020-09-15] MEDS ORDERED: MIDAZOLAM HCL 1 MG/ML 2ML VIAL ONE (11:01)
[2020-09-15] MEDS ORDERED: PROPOFOL IV EMULSION 10 MG/ML 20 ML VIAL IV ONE ×2 (11:01→13:20)
[2020-09-15] MEDS ORDERED: fentaNYL citrate 100 MCG/2 ML VIAL ONE (11:02)
[2020-09-15] MEDS ORDERED: ORTHO JOINT ANESTHETIC ONE (11:09)
[2020-09-15] MEDS ORDERED: ePHEDrine sulfate 50 MG/ML SYR ONE (12:13)
[2020-09-15] MEDS ORDERED: PHENYLEPHRINE 100MCG/ML 5ML SYR ONE (12:14)
[2020-09-15] MEDS ORDERED: LIDOCAINE HCL 2% 2 ML VIAL/AMP(20MG/ML) INFIL ONE (13:49)
--- NOTE | 2020-09-15 14:18 | Operative Report ---
Post Operative Report Pre & Post Diagnosis Operation Date: 09/15/20 11:45 Pre-Op Diagnosis: Left Hip Arthritis Post-Op Diagnosis: Left Hip Arthritis I identified the patient and participated in the time-out.: Yes Procedure Operation Date: 09/15/20 11:45 Actual Procedures p Left Total Hip Arthroplasty Cemented(Left) - Nahum Mathews MD Surgeon Nahum Mathews MD Etl Lead Nadia Madrid PALaurie Estimated Blood Loss 100 Findings Consistent with Post-Op Diagnosis Specimens femoral head Complications none Disposition Accompanied Patient To Recovery: No Disposition: Recovery Room Description of Procedure I was present during the entire case assisting with positioning, prepping, draping, wound retraction, wound closure, dressing and abduction pillow placement. No fellow present. Please see Dr. Mathews procedure note for spe cifics of the case. I attest to the content of the Intraoperative Record and any orders documented therein. Any exceptions are noted below.
--- NOTE | 2020-09-15 14:18 | Operative Report ---
Post Operative Report Pre & Post Diagnosis Operation Date: 09/15/20 11:45 Pre-Op Diagnosis: Left Hip Arthritis Post-Op Diagnosis: Left Hip Arthritis I identified the patient and participated in the time-out.: Yes Procedure Operation Date: 09/15/20 11:45 Actual Procedures p Left Total Hip Arthroplasty Cemented(Left) - Nahum Mathews MD Surgeon Nahum Mathews MD Seat Mender MARILIN Madrid PA-C. No resident or fellow was available to assist. Estimated Blood Loss 100 Findings Consistent with Post-Op Diagnosis Specimens Femoral head, left Anesthesia Type Spinal Complications none Disposition Accompanied Patient To Recovery: No Disposition: Recovery Room Indications 84-year-old female with left hip pain refractory to conservative management. X- rays show [id number] arthritis. I had a long discussion with her about the risks and benefits of surgery, alternatives to surgery, and expected outcomes. After reviewing all these she elected to proceed with surgery. All questions were answered. Informed consent was signed. Description of Procedure Patient was identified in the preoperative holding area and the surgical site, left hip, was marked. A spinal anesthetic was placed, then the patient was brought back to the main operating room, placed in the operating table and moved into the lateral decubitus position. Axillary roll was placed. All bony prominences were padded. Perioperative antibiotics and tranexamic acid 1 gram IV were administered. Operative extremity was prepped and draped in the normal sterile fashion. Prior to incision a multidisciplinary timeout was called. All in the room were in agreement. We began by making an incision for a posterior approach to the hip. We dissected down through subcutaneous tissues to the level of the fascia. The fascia was incised in line with the incision. Charnley bow was placed. The trochanteric bursa was excised. The piriformis and short external rotators were dissected off the posterior aspect of the hip. A box cut was made in the capsule. The femoral head was dislocated. The femoral neck cut was made at our preoperative template. The acetabulum was then exposed. The labrum was sharply excised. Contents of the cotyloid fossa were removed with electrocautery. We then began reaming at a size 8 mm less than our preoperative template. We reamed up by 1 [address] increments [address] the way up to a size 56 mm cup. This gave us good bleeding cancellus bone circumferentially. The acetabulum was then irrigated out and dried. The real Kaiser Gription cup was then impacted down into position with 45 degrees of lateral opening and 25 degrees of anteversion. 2 cancellous bone screws were placed up into the ilium. Excellent fixation was obtained. Acetabular trial component for a dual mobility cup was then placed. Next we turned our attention to the femur. The lateral neck was removed with a box osteotome. Intramedullary guide was used followed by the lateralizing reamer. We then broached all the way up to a size 4. We began trialing with a standard offset neck and a +1.5 head. Hip was reduced. Leg lengths were symmetric. The hip was stable in extension and external rotation, and stable in the sleeper position. At 90 degrees of hip flexion the hip could be internally rotated 55 degrees before levering out of the cup. I was very happy with the stability exam. Therefore the hip was dislocated and the femoral trial was removed. The acetabulum was reexposed and the trial liner was removed. The metal liner was then impacted into position. Harris taper engaged appropriately. We then reexposed the femur. The femoral canal was irrigated and dried. Cement restrictor was placed. Cement was mixed on the back table and pressurized in the femoral canal. The real size 4 standard offset cemented [place] femoral stem was opened up. This was impacted down into position. It sat at the same level as the femoral trial. Femoral trial was held in this position until the cement had completely cured. The dual mobility liner and 28 mm, +1.5 ceramic femoral head was opened up and gently impacted down onto the trunnion. The hip was atraumatically reduced. Another 1 gram of IV tranexamic acid was started prior to closure. The wound was irrigated out with sterile Betadine solution. The periarticular injection cocktail was then placed. The short external rotators, piriformis, and posterior capsule were repaired through drill holes in the greater trochanter using #2 Vicryl. The fascia was run with a looped #1 PDS. The subcutaneous layer was closed with #1 PDS. The dermal layer was closed with 2-0 Vicryl. Zip line was used for the skin followed by a Silverlon dressing. A compressive dressing was then placed. The patient was then rolled supine. Leg lengths were rechecked and were symmetric. An abduction pillow was placed. Sedation was lifted and the patient was transferred to recovery room in stable condition. Summary of implants: Depuy Kaiser Gription Acetabular Shell Sector Cup, 56 mm outer diameter 2 Kaiser Cancellous bone screws, measuring 40 and 20 mm in length 2 batches of Simplex P cement 11 mm cementralizer DePuy [place] Femoral stem with [place], 12/14 taper, size [] 28 mm ceramic femoral head with +1.5 offset 56/49 dual mobility liner Postoperative course: Patient will be admitted to the hospital from the recovery room. Patient will be weightbearing as tolerated with posterior hip precautions. Aspirin for DVT prophylaxis I attest to the content of the Intraoperative Record and any orders documented therein. Any exceptions are noted below.
[2020-09-15] MEDS ORDERED: ALUMINUM/MAGNESIUM SUSP 30 ML UDC PO PRN (14:19)
[2020-09-15] MEDS ORDERED: NALOXONE HCL 0.4 MG/1 ML VIAL/CARP IV PRN (14:19)
[2020-09-15] MEDS ORDERED: oxyCODONE HCL IR 5 MG TAB (IMMEDIATE RELEASE) PO PRN (14:19)
[2020-09-15] MEDS ORDERED: MAGNESIUM HYDROXIDE SUSP 30 ML UDC PO PRN (14:19)
[2020-09-15] MEDS ORDERED: HYDROmorphone INJ 0.5 MG/0.5 ML SYR IV PRN (14:19)
[2020-09-15] MEDS ORDERED: METOCLOPRAMIDE HCL INJ 5 MG/ML 2 ML VIAL IV PRN (14:19)
[2020-09-15] MEDS ORDERED: diphenhydrAMINE 50 MG/ML VIAL IV PRN (14:19)
[2020-09-15] MEDS ORDERED: bisacodyL 10 MG SUPP PR PRN (14:19)
--- NOTE | 2020-09-15 14:48 | XRay Report ---
XR pelvis 1-2V routine HISTORY: 84 years-old Female Post Surgical left hip total joint arthroplasty COMPARISON: Pelvis radiograph 08/26/2020 TECHNIQUE: AP view the pelvis FINDINGS: Moderate right hip osteoarthritis. Left hip total joint arthroplasty. Expected postsurgical soft tiss ue swelling and deep tissue air surrounding the left hip. No acute fracture, malalignment or unexpect ed opaque foreign body. Moderate degeneration of the pubic symphysis. IMPRESSION: Left hip total joint arthroplasty with expected postoperative changes. ACT 112: Negative or not required by law. The above report was generated using voice recognition software. It may contain grammatical, syntax o r spelling errors. Electronically signed by: Sal Perez M.D. 09/15/2020 2:47 PM
--- NOTE | 2020-09-15 15:14 | Anesthesiology Progress Note ---
Date of Service September 15, 2020 Anesthesia Post Procedure Vital Signs Vital Signs: Temp Pulse Pulse Resp BP Pulse Ox 09/15/20 14:45 98.1 F 71 21 122/55 L 98 09/15/20 14:35 79 21 104/59 L 94 09/15/20 14:25 75 16 113/50 L 98 09/15/20 14:19 97.2 F L 75 18 114/51 L 98 09/15/20 09:21 97.0 F L 91 H 20 129/77 93 Transfer of Care Handoff Completed per policy Notes Mental Status: alert / awake / arousable and participated in evaluation Patient Amnestic to Procedure: Yes Nausea / Vomiting: adequately controlled Pain: adequately controlled Airway Patency, RR, SpO2: stable & adequate BP & HR: stable & adequate Hydration State: stable & adequate Neuraxial Anesthesia: was administered and sensory block is resolving Anesthetic Complications: no major complications apparent and Pt Satisfied with anesthetic care
[2020-09-15] MEDS: Scopolamine CHECK PATCH PLACEMENT SCH ×2 (15:16→23:05)
[2020-09-15] MEDS: SODIUM CHLORIDE 0.9% 1000ML 1,000 ML IV SCH (15:44)
[2020-09-15] MEDS ORDERED: TRANEXAMIC ACID / 0.7% NACL 1,000 MG/100 ML BAG IV SCH (20:30)
[2020-09-15] MEDS: ceFAZolin 2000MG 2,000 MG/15 ML SYR IV SCH (20:47)
[2020-09-15] MEDS: DOCUSATE SODIUM 100 MG CAP PO SCH (20:53)
[2020-09-15] MEDS: ACETAMINOPHEN 500 MG TAB PO SCH (20:54)
[2020-09-15] MEDS ORDERED: SENNA 8.6 MG TAB PO SCH (21:00)
[2020-09-15] MEDS ORDERED: [UNRECOGNIZED DRUG - OTHER] PO SCH (21:00)
[2020-09-15] MEDS ORDERED: BIOTIN PO SCH (21:00)
[2020-09-15] MEDS ORDERED: ATORVASTATIN 40 MG TAB PO SCH (21:00)
[2020-09-16] MEDS: SODIUM CHLORIDE 0.9% 1000ML 1,000 ML IV SCH (01:35)
[2020-09-16] MEDS: ceFAZolin 2000MG 2,000 MG/15 ML SYR IV SCH (04:56)
[2020-09-16] MEDS: ACETAMINOPHEN 500 MG TAB PO SCH (05:01)
[2020-09-16 06:29] LABS: Hematocrit (blood only) 33.9 % (37-47); Immature Granulocytes # (auto) 0.02 K/uL (0.00-0.02); Immature Granulocytes % (auto) 0.2 %; Lymphocytes # (auto) 0.63 K/uL (1.2-3.4); Lymphocytes % (auto) 6.3 %; Mean Corpuscular Hemoglobin 29.3 pg (25-34); Mean Corpuscular Hgb Conc 32.4 g/dL (32-36); Mean Corpuscular Volume 90.4 fL (80-100); Mean Platelet Volume 9.1 fL (7.4-10.4); Monocytes # (auto) 0.62 K/uL (0.11-0.59); Monocytes % (auto) 6.2 %; Neutrophils % (auto) 87.3 %; Platelet Count 224 K/uL (130-400); RDW Standard Deviation 46.4 fL (36.4-46.3); Red Blood Count 3.75 M/uL (4.2-5.4); White Blood Count 10.07 K/uL (4.8-10.8)
[2020-09-16 07:07] LABS: BUN Creatinine Ratio 24.3 (10-20); Calcium 7.9 mg/dl (8.5-10.1); Creatinine Clr Calc Pharmacy 37.4 ml/min; Est GFR (African American) 66.7 ml/min; Est GFR (Non-African American) 57.5 ml/min; Potassium 4.1 mmol/L (3.5-5.1)
[2020-09-16] MEDS ORDERED: dexAMETHasone 4 MG TAB PO SCH (08:00)
[2020-09-16] MEDS: Scopolamine CHECK PATCH PLACEMENT SCH ×3 (08:49→09:00)
[2020-09-16] MEDS: DOCUSATE SODIUM 100 MG CAP PO SCH (08:50)
[2020-09-16] MEDS ORDERED: SPIRONOLACTONE 12.5 MG TAB PO SCH (09:00)
[2020-09-16] MEDS ORDERED: MULTIVITAMIN TAB PO SCH (09:00)
[2020-09-16] MEDS ORDERED: CEROVITE ADV FORMULA TAB PO SCH (09:00)
[2020-09-16] MEDS ORDERED: APIXABAN 5 MG TABLET PO SCH (09:00)
[2020-09-16] MEDS ORDERED: CALCIUM 600MG + VIT D 400 IU TAB PO SCH (09:00)
[2020-09-16] MEDS ORDERED: CHOLECALCIFEROL 1,000 UNITS 25 MCG TAB PO SCH (09:00)
[2020-09-16] MEDS ORDERED: SERTRALINE HCL 50 MG TABLET PO SCH (09:00)
--- NOTE | 2020-09-16 09:47 | Orthopedic Progress Note ---
Date of Service September 16, 2020 Assessment & Plan (1) S/P total hip arthroplasty: Total hip precautions were reviewed Weightbearing as tolerated with walker assistance PT/OT DVT prophylaxis with Eliquis and HOWARD stockings Pain control with p.o. medication Ice with EZ WRAP Abduction pillow use x6 weeks postoperatively Plan on discharge home today with in-home physical therapy for the first [address] dressing in [address] until 2-week follow-up Follow-up with [facility] orthopedics as previously scheduled With questions contact our clinic at area code [phone] Admission and Anticipated Discharge Date Admission Date: September 15, 2020 Subjective This 84-year-old female is day 1 status post left total hip arthroplasty. She is currently sitting in bedside chair eating her breakfast. She states she has no pain whatsoever. She states she has been able to ambulate around her room with a walker and transition from her bed to the chair and from the chair to the bathroom without difficulty. She states that she has been doing the range of motion exercises that were provided to her earlier in her discharge packet. Currently she denies chest pain, shortness of breath, fever, chills, sweats, lethargy, weakness or numbness or tingling in the left lower extremity. Review of Systems Review of Systems: All systems reviewed & are unremarkable except as noted in Subjective Physical Exam Physical Exam: Left hip: Patient is easily able to perform a straight leg raise test and actively dorsi and plantarflex her foot. Her outer dressing was removed and Silverlon was intact clean and dry. Knee range of motion is from 0- 90. Patient experiences no pain with light passive internal or external hip rotation. Logroll test negative. Her peripheral pulses are 2+. Her capillary fill is less than 2 seconds. She is neurovascularly intact in the left lower extremity. Results & Data ([facility]) Vital Signs (Past 12 Hours) Vital Signs Temp Pulse Resp BP Pulse Ox 09/16/20 07:29 36.6 C 60 16 98/53 L 94 09/16/20 05:22 114/62 09/16/20 03:42 36.7 C 63 15 92/47 L 92 09/15/20 22:54 36.7 C 67 16 93/51 L 94 Laboratory Results 09/16/20 09/16/20 Range/Units 06:18 06:18 WBC 10.07 (4.8-10.8) K/uL RBC 3.75 L (4.2-5.4) M/uL Hgb 11.0 L (12.0-16.0) g/dL Hct 33.9 L (37-47) % MCV 90.4 (80-100) fL MCH 29.3 (25-34) pg MCHC 32.4 (32-36) g/dL RDW Std Deviation 46.4 H (36.4-46.3) fL RDW Coeff of Leslye 14.0 (11.5-14.5) % Plt Count 224 (130-400) K/uL MPV 9.1 (7.4-10.4) fL Immature Gran % (Auto) 0.2 % Neut % (Auto) 87.3 % Lymph % (Auto) 6.3 % [place] % (Auto) 6.2 % Eos % (Auto) 0.0 % Baso % (Auto) 0.0 % Neut # (Auto) 8.80 H (1.4-6.5) K/uL Lymph # (Auto) 0.63 L (1.2-3.4) K/uL [place] # (Auto) 0.62 H (0.11-0.59) K/uL Eos # (Auto) 0.00 (0-0.5) K/uL Baso # (Auto) 0.00 (0-0.2) K/uL Immature Gran # (Auto) 0.02 (0.00-0.02) K/uL Sodium 141 (136-145) mmol/L Potassium 4.1 (3.5-5.1) mmol/L Chloride 111 H (98-107) mmol/L Carbon Dioxide 26 (21-32) mmol/L Anion Gap 4.0 (3-11) BUN 22 H (7-18) mg/dl Creatinine 0.91 (0.6-1.2) mg/dl Est Cr Clr Drug Dosing 37.4 ml/min Est GFR ( Amer) 66.7 ml/min Est GFR (Non-Af Amer) 57.5 ml/min BUN/Creatinine Ratio 24.3 H (10-20) Glucose 121 H (70-99) mg/dl Calcium 7.9 L (8.5-10.1) mg/dl
--- NOTE | 2020-09-16 09:52 | Discharge Summary ---
Date of Service September 16, 2020 Admission HPI Per Admitting Provider History of Present Illness (including history relevant to procedure): This 84-year-old female presents the clinic today for preoperative history and physical. She has had quite severe pain in her left hip since the fall of 2019. She has tried taking Tylenol and doing physical therapy since March. Unfortunately, this has not helped. She feels aching in her groin. In the last day or so, she has had some pain going all the way down her leg, but typically the pain is all in her groin. She lives with her , who has some medical problems as well. She has family nearby, however. At their house, the laundry is down in the basement, but otherwise everything is on 1 level. She has medical history significant for arrhythmia that she has been on a pacemaker for many years. She has been on Eliquis for the last 1 year due to what sounds like some motion abnormalities on echocardiogram. She has never personally had a blood clot, she states. She does state that she bruises easily, however. Review Of Systems: A 14 point review of systems performed is unremarkable except for those things stated in the HPI and past medical history. Past Medical History: Problems: Pre-op exam Arthritis of left hip Lumbar spondylosis Primary osteoarthritis of right knee Spondylosis Lumbago Fractured coccyx Left carpal tunnel syndrome Trigger finger Trigger finger Hand paresthesia Radius distal fracture Hyperlipidemia Asthma Anxiety/depression Pacemaker Procedure History Procedure Procedure Date Comments Pacemaker D&C Jaw surgery Hysterectomy Carpal tunnel release Trigger finger release Cataract excision 1999, 2007, 2016 1976 1997 1983 2014 2014 2018 Allergies and Sensitivities: Fosamax(unknown) nitrofurantoin(unknown) Macrobid(unknown) Naprosyn(vomiting) Rapaflo meloxicam traMADol sulfa drugs Current Home Meds: (Last Updated 08/26 13:09) apixaban (Eliquis 5 mg oral tablet) 5 mg PO bid ascorbic acid (Vitamin C) 50 mg po bid aspirin (Ecotrin) 81 mg PO Daily atorvastatin 40 mg PO qhs calcium and vitamin D combination (Calcium 600+D) 1 tab PO tid ergocalciferol (Vitamin D2) multivitamin with iron (Iron 100 Plus) multivitamin with minerals (Centrum Silver Ultra Women's) sertraline 100 mg PO Daily spironolactone 25 mg PO unknown medication nystatin and triamcinolone acetonige cream when needed for prevention of fungal infection Initial Wt: 08/26 60.7 kg 134 lb Admission Exam Per Admitting Provider Physical Exam: (relevant to the procedure, including heart and lung evaluation) General: Alert and oriented x3 with proper grooming and hygiene Eyes: Pupils are equal reactive to light with accommodation. Extraocular muscles are intact Throat: Deferred due to COVID-19 precautions Cardiac: Regular rate and rhythm with no murmurs or gallops appreciated Lungs: Clear to auscultation throughout with no wheezing, rales or rhonchi Abdomen: Nonobese, nondistended, nontender with normal active bowel sounds Extremities: Left hip exam reveals the patient to have a positive Onofre test with a flexion contracture of approximately 15 degrees. She flexes up to 85 degrees. External rotation is limited to 40 degrees. Internal rotation is to 0 degrees. She has a positive Stinchfield test. Neuro: Cranial nerves II through XII are intact no motor or sensory deficit Skin: Normal in appearance with no open skin areas or discharge Principal Diagnosis Left hip osteoarthritis Discharge Exam Left hip: Patient is easily able to perform a straight leg raise test and actively dorsi and plantarflex her foot. Her outer dressing was removed and Silverlon was intact clean and dry. Knee range of motion is from 0-90. Patient experiences no pain with light passive internal or external hip rotation. Logroll test negative. Her peripheral pulses are 2+. Her capillary fill is less than 2 seconds. She is neurovascularly intact in the left lower extremity. Discharge Data Allergies Allergy/AdvReac Type Severity Reaction Status Date / Time naproxen Allergy Intermediate Rash Verified 09/15/20 09:28 nitrofurantoin Allergy Intermediate Rash Verified 09/15/20 09:28 [From Macrobid] Sulfa (Sulfonamide Allergy Intermediate Welts/Rash Verified 09/15/20 09:28 Antibiotics) meloxicam AdvReac Mild Nausea Verified 09/15/20 09:28 silodosin AdvReac Mild N/V Verified 09/15/20 09:28 tramadol AdvReac Mild Nausea Verified 09/15/20 09:28 Procedures Performed Operation Date: 09/15/20 11:45 Actual Procedures p Left Total Hip Arthroplasty Cemented(Left) - Nahum Mathews MD Hospital Course (1) S/P total hip arthroplasty: Patient essentially had an unremarkable overnight stay. She did have an episode of hypotension that was asymptomatic. This resolved with some IV fluid. Patient states she is very pleased with the results of her surgery. Currently she has no pain. She plans on doing in-home physical therapy for the first 2 weeks postoperatively. If she has questions or concerns should arise prior to her 2-week follow-up, she will contact the clinic. Total hip precautions were reviewed Weightbearing as tolerated with walker assistance PT/OT DVT prophylaxis with Eliquis and HOWARD stockings Pain control with p.o. medication Ice with EZ WRAP Abduction pillow use x6 weeks postoperatively Plan on discharge home today with in-home physical therapy for the first [address] in [address] until 2-week follow-up Follow-up with [facility] orthopedics as previously scheduled With questions contact our clinic at area code [phone] Total Time Total Time Spent Total Time Spent (In Minutes): 20 minutes Total Time Includes: Examination of the Patient, Discharge Planning and Medication Reconciliation Discharge Plan Discharge Items Patient Disposition: Home - Home Health Services Reason For Visit: Left Hip Arthritis Discharge Diagnosis: Left hip osteoarthritis Activity: As commented below Lifting: None Bathing: Keep incision dry Bathing Comment: May shower tomorrow Sexual Activity: Wait until after follow-up appointment Exercise/Sports: Wait until after follow-up appointment Driving/Machine Use: No driving until cleared by orthopedic designer Weightbearing: Left weightbearing Weightbearing Comment: as tolerted with walker assistance Non-emergency contact: Primary Care Provider Call non-emergency contact if: you have any medication questions, your pain is not controlled, your temperature is above 101.5, your wound has increased drainage and your wound pain has increased Follow-up/Referrals: Elyssa Tolliver, [Primary Care Provider] - Diet: Regular Addtl Attending Provider Instructions: Post-operative Instructions Dear Patient and Family/Friends, Before you are discharged from the hospital, it is important to know what to expect when you get home after surgery. To that end, we have created this sheet of discharge instructions which covers many commonly asked questions. Make sure you go through this sheet in its entirety with your nurse before you are discharged. Please note that we will go over the specifics of your surgery and recovery when you return for your first post-operative visit. Sincerely, Dr. Mathews Medications 1. Oxycodone 5 mg: take 1-2 tabs by mouth every 4-6 hours as needed for post operative pain control. A prescription for 30 tablets will be sent to your pharmacy. 2. Diclofenac Sodium 50 mg: take 1 tab twice daily for 30 days post operatively for pain and inflammation relief. This will be sent to your pharmacy with 1 refill. 3. Resume your daily Eliquis for blood clot prevention. 4. Purchase Extra Strength Tylenol for additional pain relief as needed. Pain Expect to be in a fair amount of pain after surgery. Remember, our goal is not to eliminate your pain, but to make it tolerable. It is a good idea to stay ahead of your pain by taking the medications you were prescribed once you get home. Typically, the pain starts improving 3-7 days after surgery. You should start weaning off the narcotic pain medication (oxycodone, hydrocodone, hydromorphone, morphine) as soon as your pain improves. Please call our office if your pain is not adequately controlled. Ice Ice your operative site at least 5 times a day for 15-30 minutes at a time. Make sure you have a thin cloth between the ice or cooling unit and your skin to prevent barajas bite. This is especially important if you received a nerve block. Continue icing your operative site for the first 5-7 days after surgery, then as needed. Diet/Nausea/Vomiting Start by drinking clear liquids and eating crackers. If you can tolerate this, then you may resume your normal diet. If you feel nauseated or vomit, take Zofran/ondansetron (if prescribed). Please call our office if you have int ractable nausea or vomiting, or, if after hours, you may go to the Emergency Room for help. Constipation Constipation is a common side effect of narcotic pain medication. If you have not had a bowel movement within 2 days after surgery, we recommend purchasing an over the counter laxative such as Milk of Magnesia, Dulcolax, or Miralax from a local pharmacy, and taking it as instructed. Call our clinic if any questions. Nerve block The anesthesia team sometimes places a nerve block to help with post-operative pain control. This results in significant numbness and inability to move the extremity. The nerve block usually wears off in 8-12 hours, but sometimes can last up to 24 hours. Please call our office if you are still unable to move your extremity after 24 hours, unless you received a pain pump to take home. Nerve blocks typically wear off quickly, so start taking pain medication as soon as you start feeling soreness near your surgical site. Weight bearing and Range of Motion. Do not bear any weight through your operative extremity immediately after surgery. If you had upper extremity surgery, do not lift anything with that arm. If you are in a knee brace, keep it locked in place until your follow-up. We will discuss your weight bearing, range of motion, and lifting restrictions in detail at your first post-operative appointment. Continuous Passive Motion (CPM) Machine If you were prescribed a CPM machine, it will start after your first post- operative appointment, at which time we will give you instructions on the range of motion settings and duration of treatment Physical therapy You will be given a prescription for physical therapy or occupational therapy at your first post-operative appointment. Typically, patients start therapy within 1 week of surgery Wound care and showering We will inspect your wound at your first post-operative visit, and may do a dressing change at that time. Most patients will be in a water-proof dressing that is removed 14 days after surgery. It is normal to see some dried blood on the dressing. Do not remove your dressing, paper strips or sutures yourself unless you are given permission. Showering is allowed the day after surgery. Do not scrub or remove any dressings. The wound should not be submerged underwater (i.e. in a bathtub or pool) until 4 weeks after surgery HOWARD stockings If you were given white stockings, these are to be worn at all times except to shower (on both legs) for the first 2 weeks after surgery. Driving You may not drive while taking narcotic pain medication or while in a cast, splint, sling or brace. You, the patient, need to make the final determination about when you are safe to drive, however, the earliest you may consider driving after surgery is below: Hand/Wrist/Elbow Surgery: 3 days Shoulder Surgery: 2 weeks Hip,/Knee/Ankle Surgery: 4 weeks Fracture repair: 6 weeks Return to Work Your return to work depends on what surgery was done and what type of work you do. Please bring any paperwork your employer needs completed to your first post-operative visit. Also, bring a description of your job duties, as this helps us to understand what risks you may face at work. Travel Avoid long distance travel (greater than 1 hour) in airplanes and cars for the first 6 weeks after surgery. If you must travel, you need to have a Doppler ultrasound done before you travel to rule out a blood clot in your legs. Follow-up You should have a follow-up appointment already scheduled 1-2 days after surgery. If not, please contact our office to make this appointment before you leave the hospital. When to call the office It is normal to have swelling and bruising in the limb that was operated on. This will improve with time. It is also normal to have fevers for the first 2 days after surgery. Reasons you should call your doctor include: Uncontrolled pain; Nausea, vomiting, or constipation that does not improve with medication; Fevers over 101.5, chills, sweats; Drainage or bleeding from the wound; Foul odor; Spreading areas of redness; Any other concerns Pending Studies at Discharge: No Stand-Alone Forms: My [facility] Medications and DC Order Prescriptions: New oxycodone 5 mg tablet 5 mg PO Q4H MDD Initial prescription Qty: 30 RF: 0 diclofenac sodium 50 mg tablet,delayed release (DR/EC) 50 mg PO Q12H 30 Days Qty: 60 RF: 1 Continued atorvastatin 40 mg Tablet 40 mg PO PM RF: 0 sertraline 100 mg Tablet 150 mg PO QAM RF: 0 spironolactone 25 mg Tablet 12.5 mg PO QAM RF: 0 cholecalciferol (vitamin D3) [Vitamin D3] 1,000 unit Capsule 1,000 unit PO DAILY RF: 0 Calcium 600 + D(3) 600 mg calcium- 200 unit Capsule 1 cap PO QAM RF: 0 Centrum Silver Women 8 mg iron-400 mcg-300 mcg Tablet 1 tab PO DAILY RF: 0 vitamin C-biotin 50 mg -1,250 mcg Tablet,Chewable 1 tab PO BID RF: 0 Eliquis 5 mg Tablet 5 mg PO BID RF: 0 Discharge Orders: Discharge Order (Routine); Ordered 09/16/20 Ordered By: Guy Madrid Admission Data Admit Date/Time: 09/15/20 14:19 Attending Provider: Nahum Mathews Admit Provider: Nahum Mathews Primary Care Provider: Elyssa Tolilver Other Providers: [facility],Home Healthcare
== END 2020-09-16 14:53 | disposition home health service (06) | DRG 470 ==
LOC: PAT 08:52 → 3E 08:52 → OBSVTOIN 14:19

== ENCOUNTER 2022-02-15 07:11 | Observation (INO) ==
--- NOTE | 2021-12-07 15:11 | PAT Medication Instructions ---
Medication Instructions Date of Service December 07, 2021 Home Medications atorvastatin 40 mg tablet 40 mg PO QAM calcium carbonate 600 mg-vitamin D3 5 mcg (200 unit) capsule (Calcium 600 + D(3)) 1 cap PO QAM cholecalciferol (vitamin D3) 25 mcg (1,000 unit) capsule (Vitamin D3) 1,000 unit PO QAM multivit with edfjhyqm-tppx-EI-lutein 8 mg iron-400 mcg-300 mcg tablet (Centrum Silver Women) 1 tab PO QAM sertraline 100 mg tablet 150 mg PO QAM spironolactone 25 mg tablet 12.5 mg PO QAM vitamin C 50 mg-biotin 1,250 mcg chewable tablet 1 tab PO BID apixaban 5 mg tablet (Eliquis) 5 mg PO BID ciprofloxacin HCl 250 mg tablet (Cipro) 250 mg PO BID sodium chloride 0.65 % nasal spray aerosol (Saline Nasal) 1 spray intranasal BID PRN Continue as directed ciprofloxacin HCl 250 mg tablet (Cipro) 250 mg PO BID ASK your prescriber and surgeon apixaban 5 mg tablet (Eliquis) 5 mg PO BID(in order for spinal or epidural anesthesia, Eliquis needs to be stopped 72 hours/3 days before surgery. Please check if okay with doctor that prescribes this to you) STOP taking 2 weeks before surgery vitamin C 50 mg-biotin 1,250 mcg chewable tablet 1 tab PO BID DO NOT take the morning of surgery calcium carbonate 600 mg-vitamin D3 5 mcg (200 unit) capsule (Calcium 600 + D(3)) 1 cap PO QAM cholecalciferol (vitamin D3) 25 mcg (1,000 unit) capsule (Vitamin D3) 1,000 unit PO QAM multivit with dnicdeev-ahwm-AF-lutein 8 mg iron-400 mcg-300 mcg tablet (Centrum Silver Women) 1 tab PO QAM spironolactone 25 mg tablet 12.5 mg PO QAM Take morning of surgery With a small sip of water, OTHERWISE NOTHING TO EAT OR DRINK AFTER MIDNIGHT: atorvastatin 40 mg tablet 40 mg PO QAM sertraline 100 mg tablet 150 mg PO QAM sodium chloride 0.65 % nasal spray aerosol (Saline Nasal) 1 spray intranasal BID PRN(if needed) Take evening before surgery sodium chloride 0.65 % nasal spray aerosol (Saline Nasal) 1 spray intranasal BID PRN(if needed) Other Notes If you have any questions please call us at [phone] or [phone] or [phone] or [phone]
--- NOTE | 2021-12-13 12:04 | Anesthesiology Consultation ---
Date of Service December 13, 2021 Assessment & Plan (1) Encounter for pre-operative examination: - COVID screening: Per assessment on 12/13: No known COVID-19 positive contacts or current COVID-19 related symptoms. Travel screen negative. Patient vaccinated. At surgeon discretion if preop Covid testing being done. - S/P Left ANSELMO (09/15/20): SAB at L4-5 x1 attempt at [facility]. No issues noted per post-op anesthesia progress note. - Outpatient joint assessment: Patient is currently listed as inpatient pathway. If surgeon changes to request for outpatient joint pathway, patient is not acceptable candidate for outpatient joint program from anesthesia standpoint. - Eliquis instructions: patient made aware that in order for spinal anesthesia, Eliquis needs to be held 72 hours/3 days prior to surgery. Patient voiced understanding/will check if okay with prescriber. - PCP office visit (11/30/21): "Having chronic rhinitis for a few months.. She is also having increased gas/bloating and feels a cramping sensation in her lower abdomen sometimes with this.. She should discuss the risks of the procedure further with vb developer and has an appointment scheduled for cardiac pre- operative evaluation. She should also ensure that her weight is stable and her abdominal discomfort improves with some of the dietary changes we discussed today.. Pt has revised cardiac index score of no risk factors0.4%.. for the surgery scheduled.. Patient has several risk factors that may increase the risk of complications and should follow-up for preoperative testing with anesthesiology as well as her vb developer. She is aware that she may not be a surgical candidate based on her histories, but if her weight is stable, cardiology does not advise against surgery, and preop visit with [facility] and relevant testing are normal she would like to proceed." Preop labs and EKG 12/13/21 unremarkable. Weight stable at 57.7 kg at PAT visit (was 57.6 kg at PCP office visit)* - Patient acceptable risk for surgery pending cardiology preop evaluation (scheduled 12/20; [facility]). Chart Review Chart Review: Patient seen in Pre Admission Testing Teaching & Discussion Pre-Anesthesia Teaching/Discussion Notes: Instructed NPO after midnight before surgery,except medications with 15 cc of water. Medication instructions provided according to the PAT guidelines. History Surgery Operation Date: 12/28/21 08:15 Proposed Procedures p Right Total Knee Arthroplasty - Nahum Mathews MD Height/Weight Height: 5 ft 1 in Weight: 57.7 kg Allergies Allergy/AdvReac Type Severity Reaction Status Date / Time naproxen Allergy Intermediate Rash Verified 12/07/21 10:39 nitrofurantoin Allergy Intermediate Rash Verified 12/07/21 10:39 [From Macrobid] Sulfa (Sulfonamide Allergy Intermediate Welts/Rash Verified 12/07/21 10:39 Antibiotics) amoxicillin [From Augmentin] AdvReac Intermediate Nausea Verified 12/07/21 10:41 clavulanic acid AdvReac Intermediate Nausea Verified 12/07/21 10:41 [From Augmentin] meloxicam AdvReac Mild Nausea Verified 12/07/21 10:39 silodosin AdvReac Mild N/V Verified 12/07/21 10:39 tramadol AdvReac Mild Nausea Verified 12/07/21 10:39 Medications Home Medications Medication Instructions Recorded Confirmed Last Taken atorvastatin 40 mg tablet 40 mg PO QAM 11/20/18 12/07/21 09/14/20 18:00 calcium carbonate 600 mg-vitamin 1 cap PO QAM 11/20/18 12/07/21 09/14/20 10:00 D3 5 mcg (200 unit) capsule (Calcium 600 + D(3)) cholecalciferol (vitamin D3) 25 1,000 unit PO QAM 11/20/18 12/07/21 09/14/20 10:00 mcg (1,000 unit) capsule (Vitamin D3) multivit with 1 tab PO QAM 11/20/18 12/07/21 09/14/20 10:00 tovpnzop-hmup-TN-lutein 8 mg iron-400 mcg-300 mcg tablet (Centrum Silver Women) sertraline 100 mg tablet 150 mg PO QAM 11/20/18 12/07/21 09/15/20 07:00 spironolactone 25 mg tablet 12.5 mg PO QAM 11/20/18 12/07/21 09/14/20 10:00 vitamin C 50 mg-biotin 1,250 mcg 1 tab PO BID 11/20/18 12/07/21 09/14/20 10:00 chewable tablet apixaban 5 mg tablet (Eliquis) 5 mg PO BID 08/15/20 12/07/21 09/11/20 18:00 sodium chloride 0.65 % nasal spray 1 spray intranasal BID PRN sinus 12/07/21 12/07/21 Unknown aerosol (Saline Nasal) congestion Past Medical History Medical History Anemia Anxiety Atrial fibrillation Paroxysmal Depression Diverticular disease Hyperlipidemia Hypertension Osteoarthritis Pacemaker Medtronic (initial implant 1998, generator exchanges 2006 and 2015). Implanted 2/2 SSS and sinoatrial quynh disease- Follows with Dr. Brunson/Michaela. checks [id number] (09/2021) Exercise / Class Metabolic Activity III < 4 Walking/Shop/Light housework (uses walker/cane PRN (no CP or SOB with daily activities)) Past Family History Family History Mother Cancer Past Surgical History Surgical History History of breast biopsy right breast (benign) History of carpal tunnel release Left + trigger finger release History of colonoscopy History of hysterectomy History of left hip replacement Left ANSELMO (09/15/20): SAB at L4-5 x1 attempt at [facility]. No issues noted per post- op anesthesia progress note. History of right cataract surgery History of surgery on wrist Left Hx of left cataract extraction HX: benign breast biopsy S/P cardiac pacemaker procedure Past Anesthesia History No Hx of Anesthesia Complications and No Family Hx of Anesthesia Complications History of PONV No Hx of PONV and No Hx of Motion Sickness Social History Smoking Status: Never smoker Do You Dip or Chew Tobacco: No Hx Alcohol Use: No Hx Substance Use: No substance use type: does not use Review of Systems Patient denies chest pain, shortness of breath, fever, chills, cough, wheezing, palpitations. Physical Exam Vital Signs VITALS BP 117/72 P 80 TEMP 98.3 SP02 98%RA RESP 16 PHYSICAL Full cervical extension range of motion. Full TMJ range of motion. TMD 3 finger breaths Mallampati Score 2 Dentition: full upper/lower dentures Lungs: clear throughout to auscultation Cardiac: regular rate and rhythm, no murmurs noted Spine: normal Carotid arteries: negative bruit Extremities: no edema Lab Results Anesthesia Preop Results Results Anesthesia Widget: WBC 7.60 K/ul (4.8-10.8) 12/13/21 Hgb 10.8 g/dl (12.0-16.0) L 12/13/21 Hct 36.0 % (34.1-44.9) 12/13/21 Plt 374 K/uL (130-400) 12/13/21 Na 140 mmol/L (136-145) 12/13/21 K 4.1 mmol/L (3.5-5.1) 12/13/21 Cl 102 mmol/L (98-107) 12/13/21 CO2 29 mmol/L (21-32) 12/13/21 BUN 19 mg/dl (6-23) 12/13/21 Creat 0.83 mg/dl (0.6-1.2) 12/13/21 Glucose Level 77 mg/dl (70-99(Fasting)) 12/13/21 PT 12.4 Seconds (9.0-12.0) H 12/13/21 PTT 35.5 Seconds (21.0-31.0) H 12/13/21 INR 1.2 (0.9-1.1) H 12/13/21 HA1c 6.2 % (4.5-5.6) H 12/13/21 Blood Type O Positive 12/13/21 Antibody Screen NEGATIVE 12/13/21 Testing Laboratory Results Mildly elevated coags- pt on Eliquis* Electrocardiogram Date: 12/13/21 Atrialsensed ventricularpaced rhythm at 73 bpm. Echocardiogram Date: 09/06/20 LVEF 56%. Abnormal septal motion consistent with pacemaker activation, otherwise normal wall motion. Grade 1 diastolic dysfunction. Mild AR/TR. Other Testing Pacer check (10/17/21) [employer]. 6.9% CHANGE CONTROL MANAGER. 99.7% RVP. 4.5 years battery longevity. Magnet rate 85 bpm. Mode DDD. No parameter changes. "Normal dual-chamber pacemaker function. Adequate battery reserve"
--- NOTE | 2021-12-13 16:51 | History & Physical Report ---
Date of Service December 13, 2021 Assessment & Plan (1) Osteoarthritis of right knee: Plan: PRE-OP Diagnosis: Right knee osteoarthritis Planned Procedure: Right total knee arthroplasty Plan: Patient is scheduled to undergo this procedure at the [facility] with a 23-hour observation admission with Dr. Mathews on December. Risks and complications of the procedure such as: Infection, bleeding, pain, scarring, nerve blood vessel damage, weakness, wound problems, stiffness, incomplete relief of symptoms, hardware failure, hardware loosening, wear, fracture, tendon or ligament injury, blood clots, Embolism, heart attack, stroke and were explained to the patient at her visit today. Informed consent to perform the procedure was obtained. Patient also understands risks of proceeding with surgical intervention during the COVID-19 pandemic. Currently she is asymptomatic and has not been around anyone that is currently affected by the virus. She will not require COVID testing prior to surgery. Patient has an appointment to meet with anesthesia later this morning and while there will obtain CBC with differential, complete metabolic panel, PT/INR, blood type and screen, urinalysis, urine culture and sensitivity, EKG, hemoglobin A1c and a nasal culture for MRSA. Patient will also need preoperative medical clearance from their gear repair supervisor. We have obtained authorization from her primary care provider as long as her gear repair supervisor feels that she is stable to proceed with intervention. Patient states that she plans on doing in-home physical therapy for the first 1 to 2 weeks postoperatively with [facility]. Patient states that she will most likely elect to do outpatient physical therapy at our clinic. Patient has a walker, raised toilet seat and shower chair from her previous total hip arthroplasty. During today's visit we reviewed the total knee packet. We discussed discharge planning from the hospital. We discussed lectures offered by [facility] in regards to joint replacement surgery via Zoom. I advised the patient that upon discharge from hospital we will prescribe a narcotic pain medication and anti- inflammatory. Patient is currently on Eliquis. We will use her gear repair supervisor recommendation for stopping the medication. We will resume it on postoperative day 1. Patient will be scheduled for 2-week postoperative follow-up visit with Monique Kern PA-C on 01/12/22 @ 11:15. At that visit we will Provide the patient with an order for outpatient physical therapy and rehab protocol. Patient verbalizes understanding of all information provided during today's visi t. Patient thanks for the care that she received. If she has questions or concerns that should arise prior to her surgery, she will contact clinic. History of Present Illness Chief Complaint: Chief Complaint: Right knee pain Primary Care Provider: Elyssa Tolliver DO History of Present Illness (including history relevant to procedure): This 86-year-old female presents to the clinic today for preoperative history and physical. Patient has known history of severe right knee arthritis and was followed by Dr. Donohue in the past. Patient has had multiple corticosteroid injections in the past without any relief of her symptoms. She states that over the last 4 years or so the pain has increased and become persistent and is affecting her range of motion especially when she attempts to flex. Patient states that she uses a cane as an assistive device when ambulating. She states that she also recently had a Euflexxa series for her right knee but received no relief after the injections. She is ready to proceed with total knee arth roplasty. Review Of Systems: A 12 point review of systems performed is unremarkable except for those things stated in HPI and past medical history. Past Medical History: Problems: S/P total hip arthroplasty Pre-op exam Arthritis of left hip Lumbar spondylosis Primary osteoarthritis of right knee Spondylosis Lumbago Fractured coccyx Left carpal tunnel syndrome Trigger finger Trigger finger Hand paresthesia Radius distal fracture Hypercholesterolemia Irregular heartbeat Asthma Anxiety Sciatica Procedure History Procedure Procedure Date Comments Pacemaker Total hip replacement D&C Jaw surgery Hysterectomy Carpal tunnel release Trigger finger release Cataract excision Allergies and Sensitivities: Fosamax(unknown) nitrofurantoin(unknown) Macrobid(unknown) Naprosyn(vomiting) Rapaflo meloxicam traMADol sulfa drugs Social history: Completely unremarkable Family history: Noncontributory Current Home Meds: (Last Updated 12/13 10:44) apixaban (Eliquis 5 mg oral tablet) 5 mg PO bid ascorbic acid (Vitamin C) 50 mg po bid aspirin (Ecotrin) 81 mg PO Daily atorvastatin 40 mg PO qhs calcium and vitamin D combination (Calcium 600+D) 1 tab PO tid diclofenac 75 mg PO bid ergocalciferol (Vitamin D2) hylan G-F 20 (Synvisc 16 mg/2 mL intra-articular solution) 16 mg intra-articular q7days R knee dx m17.11 multivitamin with iron (Iron 100 Plus) multivitamin with minerals (Centrum Silver Ultra Women's) sertraline 100 mg PO Daily sodium hyaluronate (Euflexxa 10 mg/mL intra-articular solution) 25 mg intra- articular q7days sodium hyaluronate (Euflexxa 10 mg/mL intra-articular solution) 25 mg intra- articular q7days spironolactone 25 mg PO Initial Wt: 12/13 57.6 kg 127 lb Allergies Allergy/AdvReac Type Severity Reaction Status Date / Time naproxen Allergy Intermediate Rash Verified 12/07/21 10:39 nitrofurantoin Allergy Intermediate Rash Verified 12/07/21 10:39 [From Macrobid] Sulfa (Sulfonamide Allergy Intermediate Welts/Rash Verified 12/07/21 10:39 Antibiotics) amoxicillin [From Augmentin] AdvReac Intermediate Nausea Verified 12/07/21 10:41 clavulanic acid AdvReac Intermediate Nausea Verified 12/07/21 10:41 [From Augmentin] meloxicam AdvReac Mild Nausea Verified 12/07/21 10:39 silodosin AdvReac Mild N/V Verified 12/07/21 10:39 tramadol AdvReac Mild Nausea Verified 12/07/21 10:39 Home Medications Medication Instructions Recorded Confirmed Type atorvastatin 40 mg tablet 40 mg PO QAM 11/20/18 12/07/21 History calcium carbonate 600 mg-vitamin 1 cap PO QAM 11/20/18 12/07/21 History D3 5 mcg (200 unit) capsule (Calcium 600 + D(3)) cholecalciferol (vitamin D3) 25 1,000 unit PO QAM 11/20/18 12/07/21 History mcg (1,000 unit) capsule (Vitamin D3) multivit with 1 tab PO QAM 11/20/18 12/07/21 History [id number]-[id number]-lutein 8 mg iron-400 mcg-300 mcg tablet (Centrum Silver Women) sertraline 100 mg tablet 150 mg PO QAM 11/20/18 12/07/21 History spironolactone 25 mg tablet 12.5 mg PO QAM 11/20/18 12/07/21 History vitamin C 50 mg-biotin 1,250 mcg 1 tab PO BID 11/20/18 12/07/21 History chewable tablet apixaban 5 mg tablet (Eliquis) 5 mg PO BID 08/15/20 12/07/21 History sodium chloride 0.65 % nasal spray 1 spray intranasal BID PRN sinus 12/07/21 12/07/21 History aerosol (Saline Nasal) congestion Past Med/Surg History Medical History Anemia Anxiety Atrial fibrillation Paroxysmal Depression Diverticular disease Hyperlipidemia Hypertension Osteoarthritis Pacemaker Medtronic (initial implant 1998, generator exchanges 2006 and 2015). Implanted 2/2 SSS and sinoatrial quynh disease- Follows with Dr. Brunson/MURTAZA. checks [id number] (09/2021) Surgical History History of breast biopsy right breast (benign) History of carpal tunnel release Left + trigger finger release History of colonoscopy History of hysterectomy History of left hip replacement Left ANSELMO (09/15/20): SAB at L4-5 x1 attempt at [facility]. No issues noted per post- op anesthesia progress note. History of right cataract surgery History of surgery on wrist Left Hx of left cataract extraction HX: benign breast biopsy S/P cardiac pacemaker procedure Family History Mother Cancer Social History Smoking Status: Never smoker Second Hand Exposure: No; Hx Alcohol Use: No Hx Substance Use: No Preferred Language: Marshallese Communication Ability: Effective Microsoft Bi Architect Required: No Beliefs That Will Affect Care: None marital status: Current Living Situation: Spouse Feels Safe at Home: Yes Assistive Devices: Cane, Denture - Upper, Denture - Lower, Glasses and Walker Review of Systems All systems reviewed & are unremarkable except as noted in HPI & below Physical Exam Physical Exam: Physical Exam: (relevant to the procedure, including heart and lung evaluation) General: Alert and oriented x3 with proper grooming and hygiene Eyes: Pupils are equal and reactive to light with accommodation. Extraocular lids are intact Throat: Deferred due to COVID-19 precautions Cardiac: Regular rate and rhythm with occasional PVC. No murmurs or gallops appreciated Lungs: Clear to auscultation throughout with no wheezing, rales or rhonchi Abdomen: Nonobese, nondistended, nontender with NABS Extremities: Right knee: Range of motion is from 6 degrees of extension to 90 degrees of flexion patient has visible varus malalignment. She experiences medial joint line tenderness when knee is palpated in the flexed position. Her patella is not mobile due to arthritic change in the patellofemoral joint. She has no varus or valgus laxity with stressing. AP drawer sign Bebe test are negative. Patient is neurovascular intact in the right lower extremity. Neuro: Cranial nerves II through XII intact no motor or sensory deficit Skin: Normal in appearance with no open skin areas or discharge Results & Data ([facility]) Diagnostic Findings Studies (relevant to the procedure): X-rays done include 3 views of the right knee and standing long-leg alignment films. These demonstrate the patient to be in pathologic varus alignment with the weightbearing axis passing just along the medial aspect of the medial tibial plateau. When comparing her 3-view series with her previous x-rays done back in 2017, there has been progression of her arthritis. She was already [id number] in 2017, but she is starting to lose the normal subchondral architecture of the medial joint space consistent with collapse of the bone.
--- NOTE | 2022-02-07 12:41 | History & Physical Report ---
Date of Service February 07, 2022 Assessment & Plan (1) Osteoarthritis of right knee: Plan: PRE-OP Diagnosis: Right knee osteoarthritis Planned Procedure: Right total knee arthroplasty Plan: Patient is scheduled to undergo this procedure at the [facility] with a 23-hour observation admission with Dr. Mathews on January2021. Risks and complications of the procedure such as: Infection, bleeding, pain, scarring, nerve blood vessel damage, weakness, wound problems, stiffness, incomplete relief of symptoms, hardware failure, hardware loosening, wear, fracture, tendon or ligament injury, blood clots, Embolism, heart attack, stroke and were explained to the patient at her visit today. Informed consent to perform the procedure was obtained. Patient also understands risks of proceeding with surgical intervention during the COVID-19 pandemic. Currently she is asymptomatic and has not been around anyone that is currently affected by the virus. She will not require COVID testing prior to surgery. Patient is already met with anesthesia and her CBC with differential, complete metabolic panel, PT/INR, blood type and screen, urinalysis, urine culture and sensitivity, EKG, hemoglobin A1c and a nasal culture for MRSA are all up-to-date. We have obtained authorization from her primary care provider or lawn care specialist both of whom have cleared the patient to undergo this procedure.. Patient states that she plans on doing in-home physical therapy for the first 1 to [address] [facility]. Patient states that she will most likely elect to do outpatient physical therapy at our clinic. Patient has a walker, raised toilet seat and shower chair from her previous total hip arthroplasty. During today's visit we reviewed the total knee packet. We discussed discharge planning from the hospital. We discussed lectures offered by [facility] in regards to joint replacement surgery via Zoom. I advised the patient that upon discharge from hospital we will prescribe a narcotic pain medication and anti-inflammatory. Patient is currently on Eliquis. We will use her lawn care specialist recommendation for stopping the medication 5 days prior to the procedure. We will resume it on posto perative day 1. Patient will be scheduled for 2-week postoperative follow-up visit with myself on March 02 at 4 PM. At that visit we will Provide the patient with an order for outpatient physical therapy and rehab protocol. Patient verbalizes understanding of all information provided during today's visit. Patient thanks for the care that she received. If she has questions or concerns that should arise prior to her surgery, she will contact clinic. This chart was completed utilizing nu[employer] voice recognition software. Grammatical errors, random word insertions, pronoun errors, and in complete sentences are an occasional consequence of the system. Any questions or concerns about the content, text, or information contained within the body of this dictation should be addressed directly to the physician for clarification. History of Present Illness Chief Complaint: Chief Complaint: Right knee pain Primary Care Provider: Elyssa Tolliver DO History of Present Illness (including history relevant to procedure): This 86-year-old female presents to the clinic today for preoperative history and physical. Patient has known history of severe right knee arthritis and was followed by Dr. Donohue in the past. Patient has had multiple corticosteroid injections in the past without any relief of her symptoms. She states that over the last 4 years or so the pain has increased and become persistent and is affecting her range of motion especially when she attempts to flex. Patient states that she uses a cane as an assistive device when ambulating. She states that she also recently had a Euflexxa series for her right knee but received no relief after the injections. She is ready to proceed with total knee arthroplasty. Patient was initially scheduled to undergo this procedure on December 28, however her surgery was canceled due to the [facility] not having enough available inpatient beds. Review Of Systems: A 12 point review of systems performed is unremarkable except for those things stated in HPI and past medical history. Past Medical History: Problems: S/P total hip arthroplasty Pre-op exam Arthritis of left hip Lumbar spondylosis Primary osteoarthritis of right knee Spondylosis Lumbago Fractured coccyx Left carpal tunnel syndrome Trigger finger Trigger finger Hand paresthesia Radius distal fracture Hypercholesterolemia Irregular heartbeat Asthma Anxiety Sciatica Procedure History Procedure Procedure Date Comments Pacemaker Total hip replacement D&C Jaw surgery Hysterectomy Carpal tunnel release Trigger finger release Cataract excision Allergies and Sensitivities: Fosamax(unknown) nitrofurantoin(unknown) Macrobid(unknown) Naprosyn(vomiting) Rapaflo meloxicam traMADol sulfa drugs Social history: Completely unremarkable Family history: Noncontributory Current Home Meds: (Last Updated 12/13 10:44) apixaban (Eliquis 5 mg oral tablet) 5 mg PO bid ascorbic acid (Vitamin C) 50 mg po bid aspirin (Ecotrin) 81 mg PO Daily atorvastatin 40 mg PO qhs calcium and vitamin D combination (Calcium 600+D) 1 tab PO tid diclofenac 75 mg PO bid ergocalciferol (Vitamin D2) hylan G-F 20 (Synvisc 16 mg/2 mL intra-articular solution) 16 mg intra-articular q7days R knee dx m17.11 multivitamin with iron (Iron 100 Plus) multivitamin with minerals (Centrum Silver Ultra Women's) sertraline 100 mg PO Daily sodium hyaluronate (Euflexxa 10 mg/mL intra-articular solution) 25 mg intra- articular q7days sodium hyaluronate (Euflexxa 10 mg/mL intra-articular solution) 25 mg intra- articular q7days spironolactone 25 mg PO Initial Wt: 02/06 59.4 kg 131 lb Physical Exam: (relevant to the procedure, including heart and lung evaluation) General: Alert and oriented x3 with proper grooming and hygiene Eyes: Pupils are equal and reactive to light with accommodation. Extraocular lids are intact Throat: Deferred due to COVID-19 precautions Cardiac: Regular rate and rhythm with occasional PVC. No murmurs or gallops appreciated Lungs: Clear to auscultation throughout with no wheezing, rales or rhonchi Abdomen: Nonobese, nondistended, nontender with NABS Extremities: Right knee: Range of motion is from 6 degrees of extension to 90 degrees of flexion patient has visible varus malalignment. She experiences medial joint line tenderness when knee is palpated in the flexed position. Her patella is not mobile due to arthritic change in the patellofemoral joint. She has no varus or valgus laxity with stressing. AP drawer sign Bebe test are negative. Patient is neurovascular intact in the right lower extremity. Neuro: Cranial nerves II through XII intact no motor or sensory deficit Skin: Normal in appearance with no open skin areas or discharge Allergies Allergy/AdvReac Type Severity Reaction Status Date / Time naproxen Allergy Intermediate Rash Verified 12/07/21 10:39 nitrofurantoin Allergy Intermediate Rash Verified 12/07/21 10:39 [From Macrobid] Sulfa (Sulfonamide Allergy Intermediate Welts/Rash Verified 12/07/21 10:39 Antibiotics) amoxicillin [From Augmentin] AdvReac Intermediate Nausea Verified 12/07/21 10:41 clavulanic acid AdvReac Intermediate Nausea Verified 12/07/21 10:41 [From Augmentin] meloxicam AdvReac Mild Nausea Verified 12/07/21 10:39 silodosin AdvReac Mild N/V Verified 12/07/21 10:39 tramadol AdvReac Mild Nausea Verified 12/07/21 10:39 Home Medications Medication Instructions Recorded Confirmed Type atorvastatin 40 mg tablet 40 mg PO QAM 11/20/18 12/07/21 History calcium carbonate 600 mg-vitamin 1 cap PO QAM 11/20/18 12/07/21 History D3 5 mcg (200 unit) capsule (Calcium 600 + D(3)) cholecalciferol (vitamin D3) 25 1,000 unit PO QAM 11/20/18 12/07/21 History mcg (1,000 unit) capsule (Vitamin D3) multivit with 1 tab PO QAM 11/20/18 12/07/21 History dfflswfj-zuad-BD-lutein 8 mg iron-400 mcg-300 mcg tablet (Centrum Silver Women) sertraline 100 mg tablet 150 mg PO QAM 11/20/18 12/07/21 History spironolactone 25 mg tablet 12.5 mg PO QAM 11/20/18 12/07/21 History vitamin C 50 mg-biotin 1,250 mcg 1 tab PO BID 11/20/18 12/07/21 History chewable tablet apixaban 5 mg tablet (Eliquis) 5 mg PO BID 08/15/20 12/07/21 History sodium chloride 0.65 % nasal spray 1 spray intranasal BID PRN sinus 12/07/21 12/07/21 History aerosol (Saline Nasal) congestion Past Med/Surg History Medical History Anemia Anxiety Atrial fibrillation Paroxysmal Depression Diverticular disease Hyperlipidemia Hypertension Osteoarthritis Pacemaker Medtronic (initial implant 1998, generator exchanges 2006 and 2015). Implanted 2/2 SSS and sinoatrial quynh disease- Follows with Dr. Brunson/MURTAZA. checks [id number] (09/2021) Surgical History History of breast biopsy right breast (benign) History of carpal tunnel release Left + trigger finger release History of colonoscopy History of hysterectomy History of left hip replacement Left ANSELMO (09/15/20): SAB at L4-5 x1 attempt at [facility]. No issues noted per post- op anesthesia progress note. History of right cataract surgery History of surgery on wrist Left Hx of left cataract extraction HX: benign breast biopsy S/P cardiac pacemaker procedure Family History Mother Cancer Social History Smoking Status: Never smoker Second Hand Exposure: No; Hx Alcohol Use: No Hx Substance Use: No Preferred Language: Romansh Communication Ability: Effective Medical Staff Specialist Required: No Beliefs That Will Affect Care: None marital status: Current Living Situation: Spouse Feels Safe at Home: Yes Assistive Devices: Cane, Denture - Upper, Denture - Lower, Glasses and Walker Physical Exam Physical Exam: Physical Exam: (relevant to the procedure, including heart and lung evaluation) General: Alert and oriented x3 with proper grooming and hygiene Eyes: Pupils are equal and reactive to light with accommodation. Extraocular lids are intact Throat: Deferred due to COVID-19 precautions Cardiac: Regular rate and rhythm with occasional PVC. No murmurs or gallops appreciated Lungs: Clear to auscultation throughout with no wheezing, rales or rhonchi Abdomen: Nonobese, nondistended, nontender with NABS Extremities: Right knee: Range of motion is from 6 degrees of extension to 90 degrees of flexion patient has visible varus malalignment. She experiences medial joint line tenderness when knee is palpated in the flexed position. Her patella is not mobile due to arthritic change in the patellofemoral joint. She has no varus or valgus laxity with stressing. AP drawer sign Bebe test are negative. Patient is neurovascular intact in the right lower extremity. Neuro: Cranial nerves II through XII intact no motor or sensory deficit Skin: Normal in appearance with no open skin areas or discharge Results & Data ([facility]) Diagnostic Findings Studies (relevant to the procedure): X-rays done include 3 views of the right knee and standing long-leg alignment films. These demonstrate the patient to be in pathologic varus alignment with the weightbearing axis passing just along the medial aspect of the medial tibial plateau. When comparing her 3-view series with her previous x-rays done back in 2017, there has been progression of her arthritis. She was already [id number] in 2017, but she is starting to lose the normal subchondral architecture of the medial joint space consistent with collapse of the bone. Code Status & VTE Plan VTE Prophylaxis Plan VTE Prophylaxis will be ordered: Yes
[~2022-02-15 07:11] MED LIST changes: -LR 15ML/HR IV SCH; +LR 500ML BOLUS, THEN 15ML/HR IV SCH; -METOCLOPRAMIDE HCL 10 MG TABLET PO SCH; +ROPIVACAINE 0.5% 5 MG/ML 30 ML VIAL ONE
[2022-02-15] MEDS ORDERED: MIDAZOLAM HCL 1 MG/ML 2ML VIAL ONE (07:26)
[2022-02-15] MEDS ORDERED: fentaNYL citrate 100 MCG/2 ML VIAL ONE (07:26)
[2022-02-15] MEDS ORDERED: LIDOCAINE 2% MPF LOCAL 5 ML VIAL INFIL ONE (07:26)
[2022-02-15] MEDS ORDERED: PROPOFOL IV EMULSION 10 MG/ML 20 ML VIAL IV ONE (07:26)
[2022-02-15] MEDS ORDERED: ePHEDrine sulfate 50 MG/ML AMP IV PRN (08:32)
[2022-02-15] MEDS ORDERED: fentaNYL citrate 100 MCG/2 ML VIAL IV PRN (08:32)
[2022-02-15] MEDS ORDERED: ONDANSETRON INJ 2 MG/ML 2 ML VIAL IV PRN ×2 (08:32→11:21)
[2022-02-15] MEDS ORDERED: ATROPINE SULFATE 0.1 MG/ML 10ML SYR IV PRN (08:32)
--- NOTE | 2022-02-15 08:49 | History & Physical Bridge Note ---
Date of Service February 15, 2022 History & Physical Bridge Note I have examined the patient, reviewed the History & Physical and in the interval since the performance of the History & Physical I have noted the following changes of clinical significance: no changes noted
[2022-02-15] MEDS ORDERED: ORTHO JOINT ANESTHETIC ONE (08:59)
[2022-02-15] MEDS ORDERED: ONDANSETRON INJ 2 MG/ML 2 ML VIAL ONE (09:38)
--- NOTE | 2022-02-15 11:18 | Operative Report ---
Post Operative Report Pre & Post Diagnosis Operation Date: 12/28/21 08:15 <No data on this case meets the specified criteria> Operation Date: 02/15/22 09:10 Pre-Op Diagnosis: Right Knee Osteoarthritis Post-Op Diagnosis: Right Knee Osteoarthritis I identified the patient and participated in the time-out.: Yes Procedure Operation Date: 12/28/21 08:15 <No data on this case meets the specified criteria> Operation Date: 02/15/22 09:10 Actual Procedures p Right Total Knee Arthroplasty(Right) - Nahmu Mathews MD Surgeon Nahum Mathews MD Digital Marketer Vinny Chowdhury PA-C. Estimated Blood Loss 50 Findings Consistent with Post-Op Diagnosis Specimens Right knee bone and soft tissue contents Anesthesia Type Spinal MAC Complications none Disposition Disposition: Recovery Room Indications 86-year-old female, with right knee osteoarthritis refractory to conservative management. X-rays demonstrate [id number] disease. I had a long discussion with her about the risks and benefits of surgery, alternatives, and expected outcomes. After reviewing all these she elected proceed with surgery. All questions were answered. Informed consent was signed. Description of Procedure Patient was identified in the preoperative holding area where the surgical site, right knee, was marked. Patient was brought back to the operating room, placed on the operating room table, and IV sedation was administered. All bony prominences were padded. Perioperative antibiotics and tranexamic acid were administered. Exam under anesthesia was performed. This demonstrated flexion contracture of approximately 8 degrees. She was able to flex up to approximately 110 degrees. Stable to varus and valgus stress test. The surgical site was prepped and draped in the normal sterile fashion. Prior to incision a multidisciplinary timeout was called. All in the room were in agreement. We began by exsanguinating the limb with an Esmarch bandage. Tourniquet was inflated to 250 mmHg. A 14 cm long incision was made over the anterior aspect of the knee. I dissected through the subcutaneous tissues to the level of the fascia. Full-thickness flaps were raised above the fascia. A median parapatellar arthrotomy was made. Half the fat pad was excised. A medial release was performed with Bovie electrocautery on the proximal tibia. Synovit is in the knee and suprapatellar pouch was removed. The patella was then everted and held with 2 towel clips. The thickness of the patella was measured at 22 mm. Patellar resection was performed. Caliper showed the patella thickness now to be 13 mm. A size 35 trial was placed and had a great fit. The 3 drill holes were placed then the trial button was placed. The patellar thickness was now 23 mm which I was very happy with. The patellar trial was then removed, the patella was everted and the knee was flexed up. Osteophytes were removed from the femoral condyles and intercondylar notch. The ACL and PCL were excised. Intramedullary drill guide was drilled into the femur. Distal femoral cutting guide was placed set at 5 degrees of valgus to resect 9 mm off the distal femur. Distal femoral resection was made without difficulty. The tibia was then exposed. The lateral meniscus was sharply excised. The tibial cutting jig was positioned to resect 9 mm off the less involved co mpartment. The jig was then pinned in position and the tibial cut was made. We then brought the knee into full extension. Lamina spreaders were placed. The medial meniscus was excised. The extension block was then placed for 5 mm thickness poly. This gave us full extension and excellent stability to varus and valgus. Next the knee was flexed up and the femoral sizing guide was placed. The patient sized to a size 5 femur. The 3 degree external rotation jig was used to create 2 holes in the distal femur. The jig was removed and the holes were compared to Whitesides axis and the epicondylar axis. We were happy with the rotation, and therefore placed a size three 4-in-1 cutting jig and pinned this into position. Our 4 cuts were made. The cutting jig was removed. The flexion block was then placed with the knee held at 90 degrees. There was excellent stability to varus and valgus at 90 degrees with no gapping medially or laterally. Next the box cutting jig was placed on the distal femur. The box cut was made and the femoral trial was impacted into position. The tibia was sized to a 4 for a all polyethylene component. The tibial tray was positioned in external rotation on the cut tibial surface and the knee was brought through a full range of motion. We then pinned the tibial tray into position and used the intramedullary drill followed by the keel punch. The trial polyethylene was then placed and the knee was brought through a full range of motion. I was very happy with the stability through a full range of motion, and the patellar tracking was excellent. Next the trial components were removed. I then injected the posterior capsule and periosteum with the periarticular injection cocktail. The bone cuts were then irrigated and dried while the cement was mixed on the back table. The femoral component was cemented on first. Excess cement was removed. A lap sponge was placed over the femoral component for protection, then the tibia was subluxated anteriorly. The all polyethylene tibial component was then cemented in place. Again excess cement was removed. The knee was brought into full extension and held there until the cement cured. The patella was cemented and clamped. Dilute Betadine solution was then allowed to irrigate the knee while the cement cured. Once the cement was fully cured, the tourniquet was let down and meticulous hem ostasis was ensured. The wound was irrigated out with copious amounts normal saline. The knee was brought through a full range of motion and we were very happy with the patella tracking and the stability. We then began to close. Interrupted 0 Vicryl suture was used to repair the patellar retinaculum in [id number] fashion. The quadriceps and patellar tendons were run with #1 Ethibond. The deep dermal layer was closed with interrupted 2-0 Vicryl. Dermabond and Zipline was used for the skin. A compressive dressing was placed. Patient's sedation was lifted and was transferred to recovery room in stable condition. Summary of implants: Depuy Attune Posterior Stabilized Cemented Femur, size 5 Attune All-polyethylene tibial component, posterior stabilized 5 mm thickness, size 4 Attune patella medialized dome, size 35 2 batches of simplex high viscosity bone cement Postoperative course: Patient will be admitted to the floor for pain control and monitoring. Weightbearing as tolerated with a walker with no knee range of motion for 48 hours. Aspirin for DVT prophylaxis. I attest to the content of the Intraoperative Record and any orders documented therein. Any exceptions are noted below.
[2022-02-15] MEDS ORDERED: oxyCODONE HCL IR 5 MG TAB (IMMEDIATE RELEASE) PO PRN (11:21)
[2022-02-15] MEDS ORDERED: ALUMINUM/MAGNESIUM SUSP 30 ML UDC PO PRN (11:21)
[2022-02-15] MEDS ORDERED: diphenhydrAMINE 50 MG/ML VIAL IV PRN (11:21)
[2022-02-15] MEDS ORDERED: NALOXONE HCL 0.4 MG/1 ML VIAL/CARP IV PRN (11:21)
[2022-02-15] MEDS ORDERED: METOCLOPRAMIDE HCL INJ 5 MG/ML 2 ML VIAL IV PRN (11:21)
[2022-02-15] MEDS ORDERED: MAGNESIUM HYDROXIDE SUSP 30 ML UDC PO PRN (11:21)
[2022-02-15] MEDS ORDERED: bisacodyL 10 MG SUPP PR PRN (11:21)
--- NOTE | 2022-02-15 11:24 | Operative Report ---
Post Operative Report Pre & Post Diagnosis Operation Date: 12/28/21 08:15 <No data on this case meets the specified criteria> Operation Date: 02/15/22 09:10 Pre-Op Diagnosis: Right Knee Osteoarthritis Post-Op Diagnosis: Right Knee Osteoarthritis I identified the patient and participated in the time-out.: Yes Procedure Operation Date: 12/28/21 08:15 <No data on this case meets the specified criteria> Operation Date: 02/15/22 09:10 Actual Procedures p Right Total Knee Arthroplasty(Right) - Nahum Mathews MD Surgeon Edyta Mathews MD Document Preparation Specialist Vinny Chowdhury PA-C. Estimated Blood Loss 50 Findings Consistent with Post-Op Diagnosis See operative report Specimens See operative report Drains None Complications none Disposition Accompanied Patient To Recovery: Yes Indications This 86-year-old female presented to the office with complaints of persisting right knee pain. She had tried conservative care measures without improvement. She elected to proceed with surgical intervention after being educated about potential risks and outcomes. Preoperative imaging was obtained. Description of Procedure Patient was administered a spinal anesthetic and then taken to the operating room where she was given sedation. She was prepped and draped in the usual sterile fashion. Please see Dr. Mathews's operative report for specifics of the procedure. I was present for the entire case from initial patient positioning through final wound closure. Assistance was provided in tissue retraction, hemostasis, trial implant placement, final implant placement, and final wound closure. The patient was taken to the recovery room in satisfactory condition. I attest to the content of the Intraoperative Record and any orders documented therein. Any exceptions are noted below.
[2022-02-15] MEDS ORDERED: SODIUM CHLORIDE 0.65% NA SOLN 45 ML (OCEAN) NAE PRN (11:25)
--- NOTE | 2022-02-15 11:53 | XRay Report ---
RIGHT KNEE 2 VIEWS History: Right total knee arthroplasty. Degenerative arthritis. Postop. FINDINGS: The patient is status post a right total knee arthroplasty. The hardware is intact. No frac ture or dislocation. IMPRESSION: Right total knee arthroplasty. No evidence for hardware complication. ACT 112: Negative or not required by law. Electronically signed by: Storm Wilkinson M.D. 02/15/2022 11:51 AM
--- NOTE | 2022-02-15 13:38 | Anesthesiology Progress Note ---
Date of Service February 15, 2022 Anesthesia Post Procedure Vital Signs Vital Signs: Temp Pulse Pulse Resp BP Pulse Ox O2 Del Method 02/15/22 13:00 78 15 118/65 93 Room Air 02/15/22 12:45 75 19 115/64 92 Room Air 02/15/22 12:15 79 17 128/72 95 Room Air 02/15/22 12:30 77 14 115/61 92 Room Air 02/15/22 12:00 73 19 115/64 95 Room Air 02/15/22 11:40 74 15 151/64 H 99 Oxymask 02/15/22 11:50 98.1 F 79 16 130/58 L 95 Room Air 02/15/22 11:30 71 16 116/62 99 Oxymask 02/15/22 11:22 97.9 F 80 12 121/58 L 95 Oxymask 02/15/22 07:48 98.1 F 95 H 20 126/70 97 Room Air O2 Flow Rate 02/15/22 13:00 02/15/22 12:45 02/15/22 12:15 02/15/22 12:30 02/15/22 12:00 02/15/22 11:40 1 02/15/22 11:50 02/15/22 11:30 3 02/15/22 11:22 5 02/15/22 07:48 Pain Intensity Right Knee: Pain Intensity: 0 Transfer of Care Handoff Completed per policy Notes Mental Status: alert / awake / arousable and participated in evaluation Patient Amnestic to Procedure: Yes Nausea / Vomiting: adequately controlled Pain: adequately controlled Airway Patency, RR, SpO2: stable & adequate BP & HR: stable & adequate Hydration State: stable & adequate Neuraxial Anesthesia: was administered and sensory block is resolving Anesthetic Complications: no major complications apparent and Pt Satisfied with anesthetic care
[2022-02-15] MEDS: KETOROLAC TROMETHAMINE 15 MG/ML VIAL IV SCH ×2 (15:05→18:33)
[2022-02-15] MEDS: SODIUM CHLORIDE 0.9% 1000ML 1,000 ML IV SCH (15:06)
[2022-02-15] MEDS: ACETAMINOPHEN 500 MG TAB PO SCH ×2 (15:55→23:05)
[2022-02-15] MEDS: Scopolamine CHECK PATCH PLACEMENT SCH (15:57)
[2022-02-15] MEDS ORDERED: TRANEXAMIC ACID / 0.7% NACL 1,000 MG/100 ML BAG IV SCH (17:30)
[2022-02-15] MEDS: ceFAZolin 2000MG 2,000 MG/15 ML SYR IV SCH (18:09)
[2022-02-15] MEDS ORDERED: ASCORBIC ACID 500 MG TAB PO SCH (21:00)
[2022-02-15] MEDS ORDERED: SENNA 8.6 MG TAB PO SCH (21:00)
[2022-02-15] MEDS: DOCUSATE SODIUM 100 MG CAP PO SCH (21:55)
[2022-02-15] MEDS: ASCORBIC ACID 500 MG TAB PO SCH (23:05)
[2022-02-16] MEDS: KETOROLAC TROMETHAMINE 15 MG/ML VIAL IV SCH ×2 (00:44→06:24)
[2022-02-16] MEDS: Scopolamine CHECK PATCH PLACEMENT SCH ×2 (00:45→08:46)
[2022-02-16] MEDS: ceFAZolin 2000MG 2,000 MG/15 ML SYR IV SCH (00:46)
[2022-02-16] MEDS: SODIUM CHLORIDE 0.9% 1000ML 1,000 ML IV SCH (00:56)
[2022-02-16 07:20] LABS: Hematocrit (blood only) 34.4 % (34.1-44.9); Hemoglobin 10.6 g/dl (12.0-16.0); Mean Corpuscular Hemoglobin 25.5 pg (25.0-34.0); Mean Corpuscular Hgb Conc 30.8 g/dL (32.0-36.0); Mean Corpuscular Volume 82.7 fL (80.0-100.0); Mean Platelet Volume 9.3 fL (9.4-12.3); Platelet Count 290 K/uL (130-400); RDW Coefficient of Variation 18.5 % (11.5-14.5); RDW Standard Deviation 55.8 fL (36.4-46.3); Red Blood Count 4.16 M/uL (3.93-5.22); White Blood Count 12.69 K/ul (4.8-10.8)
[2022-02-16 07:42] LABS: BUN Creatinine Ratio 36.1 (10-20); Calcium 8.4 mg/dl (8.5-10.1); Creatinine Clr Calc Pharmacy 33.5 ml/min; Est GFR (African American) 60.9 ml/min; Est GFR (Non-African American) 52.5 ml/min; Potassium 4.1 mmol/L (3.5-5.1)
[2022-02-16] MEDS ORDERED: dexAMETHasone 4 MG TAB PO SCH (08:00)
[2022-02-16] MEDS: ASCORBIC ACID 500 MG TAB PO SCH (08:49)
[2022-02-16] MEDS: ACETAMINOPHEN 500 MG TAB PO SCH (08:49)
[2022-02-16] MEDS: DOCUSATE SODIUM 100 MG CAP PO SCH (08:53)
[2022-02-16] MEDS ORDERED: SERTRALINE HCL 50 MG TABLET PO SCH (09:00)
[2022-02-16] MEDS ORDERED: CALCIUM 600MG + VIT D 400 IU TAB PO SCH (09:00)
[2022-02-16] MEDS ORDERED: NON-FORMULARY MEDICATION (Multivit-Min-Iron-Fa-Lutein [Centrum Silver Women] 8 mg iron-400 PO SCH (09:00)
[2022-02-16] MEDS ORDERED: APIXABAN 5 MG TABLET PO SCH ×2 (09:00→21:00)
[2022-02-16] MEDS ORDERED: MULTIVITAMIN TAB PO SCH (09:00)
[2022-02-16] MEDS ORDERED: SPIRONOLACTONE 12.5 MG TAB PO SCH (09:00)
[2022-02-16] MEDS ORDERED: CHOLECALCIFEROL 1,000 UNITS 25 MCG TAB PO SCH (09:00)
[2022-02-16] MEDS ORDERED: ATORVASTATIN 40 MG TAB PO SCH (09:00)
[2022-02-16] MEDS ORDERED: FERROUS SULFATE 325 MG TAB PO SCH (09:00)
--- NOTE | 2022-02-16 10:11 | Orthopedic Progress Note ---
Date of Service February 16, 2022 Assessment & Plan (1) S/P total knee arthroplasty: Plan: PT/OT DVT prophylaxis with Eliquis and HOWARD stockings Pain controlled p.o. medication Keep Silverlon in place Ice with easy wrap Immobilizer use for the first 48 hours postoperatively. Weightbearing as tolerated with walker assistance Plan is for discharge home today with in-home physical therapy for the first 2 weeks postoperatively Follow-up with [facility] as previously scheduled With questions contact our clinic at [phone] Admission and Anticipated Discharge Date Admission Date: February 15, 2022 Subjective This 86-year-old female is day 1 status post right total knee arthroplasty.Patient states she is doing very well. Her pain is well controlled with the p.o. pain medication. Currently she denies chest pain, shortness of breath, fever, chills, sweats or numbness or tingling in her right lower extremity. She also denies any nausea, vomiting or difficulty voiding. Review of Systems Review of Systems: All systems reviewed & are unremarkable except as noted in Subjective Physical Exam Physical Exam: Right knee: Outer dressing is removed. Silver lines in place clean dry and intact. Patient is able to perform active straight leg raise test. She is able to actively extend 0 degrees and flex to 80 degrees. She is able to dorsi and plantarflex her foot without issue. Quad strength is 4 out of 5. Patient is neurovascular intact. Results & Data ([facility]) Vital Signs (Past 12 Hours) Vital Signs Temp Pulse Resp BP Pulse Ox O2 Del Method 02/16/22 07:46 36.4 C L 61 16 135/64 96 Room Air 02/16/22 03:53 36.6 C 68 18 131/66 95 Room Air 02/15/22 22:55 36.7 C 73 16 116/61 95 Room Air Diagnostic Findings Laboratory Results WBC 12.69 K/ul (4.8-10.8) H 02/16/22 06:49 RBC 4.16 M/uL (3.93-5.22) 02/16/22 06:49 Hgb 10.6 g/dl (12.0-16.0) L 02/16/22 06:49 Hct 34.4 % (34.1-44.9) 02/16/22 06:49 MCV 82.7 fL (80.0-100.0) 02/16/22 06:49 MCH 25.5 pg (25.0-34.0) 02/16/22 06:49 MCHC 30.8 g/dL (32.0-36.0) L 02/16/22 06:49 RDW Std Deviation 55.8 fL (36.4-46.3) H 02/16/22 06:49 RDW Coeff of Leslye 18.5 % (11.5-14.5) H 02/16/22 06:49 Plt Count 290 K/uL (130-400) 02/16/22 06:49 MPV 9.3 fL (9.4-12.3) L 02/16/22 06:49 Sodium 137 mmol/L (136-145) 02/16/22 06:49 Potassium 4.1 mmol/L (3.5-5.1) 02/16/22 06:49 Chloride 106 mmol/L (98-107) 02/16/22 06:49 Carbon Dioxide 26 mmol/L (21-32) 02/16/22 06:49 Anion Gap 5 (3-11) 02/16/22 06:49 BUN 35 mg/dl (6-23) H 02/16/22 06:49 Creatinine 0.97 mg/dl (0.6-1.2) 02/16/22 06:49 Est Cr Clr Drug Dosing 33.5 ml/min 02/16/22 06:49 Est GFR ( Amer) 60.9 ml/min 02/16/22 06:49 Est GFR (Non-Af Amer) 52.5 ml/min 02/16/22 06:49 BUN/Creatinine Ratio 36.1 (10-20) H 02/16/22 06:49 Glucose 113 mg/dl (70-99(Fasting)) H 02/16/22 06:49 Calcium 8.4 mg/dl (8.5-10.1) L 02/16/22 06:49 SARS-CoV-2, RNA, NAAT NEGATIVE (NEGATIVE) 02/15/22 Unknown Blood Type O Positive 02/15/22 07:33 Antibody Screen NEGATIVE 02/15/22 07:33 Impressions Knee X-Ray 02/15/22 11:24 RIGHT KNEE 2 VIEWS History: Right total knee arthroplasty. Degenerative arthritis. Postop. FINDINGS: The patient is status post a right total knee arthroplasty. The hardware is intact. No fracture or dislocation. IMPRESSION: Right total knee arthroplasty. No evidence for hardware complication. ACT 112: Negative or not required by law. Electronically signed by: Storm Wilkinson M.D. 02/15/2022 11:51 AM
--- NOTE | 2022-02-16 10:16 | Discharge Summary ---
Date of Service February 16, 2022 Admission HPI Per Admitting Provider History of Present Illness (including history relevant to procedure): This 86-year-old female presents to the clinic today for preoperative history and physical. Patient has known history of severe right knee arthritis and was followed by Dr. Donohue in the past. Patient has had multiple corticosteroid injections in the past without any relief of her symptoms. She states that over the last 4 years or so the pain has increased and become persistent and is affecting her range of motion especially when she attempts to flex. Patient states that she uses a cane as an assistive device when ambulating. She states that she also recently had a Euflexxa series for her right knee but received no relief after the injections. She is ready to proceed with total knee arthroplasty. Patient was initially scheduled to undergo this procedure on December 28, however her [facility]. Review Of Systems: A 12 point review of systems performed is unremarkable except for those things stated in HPI and past medical history. Past Medical History: Problems: S/P total hip arthroplasty Pre-op exam Arthritis of left hip Lumbar spondylosis Primary osteoarthritis of right knee Spondylosis Lumbago Fractured coccyx Left carpal tunnel syndrome Trigger finger Trigger finger Hand paresthesia Radius distal fracture Hypercholesterolemia Irregular heartbeat Asthma Anxiety Sciatica Procedure History Procedure Procedure Date Comments Pacemaker Total hip replacement D&C Jaw surgery Hysterectomy Carpal tunnel release Trigger finger release Cataract excision Allergies and Sensitivities: Fosamax(unknown) nitrofurantoin(unknown) Macrobid(unknown) Naprosyn(vomiting) Rapaflo meloxicam traMADol sulfa drugs Social history: Completely unremarkable Family history: Noncontributory Current Home Meds: (Last Updated 12/13 10:44) apixaban (Eliquis 5 mg oral tablet) 5 mg PO bid ascorbic acid (Vitamin C) 50 mg po bid aspirin (Ecotrin) 81 mg PO Daily atorvastatin 40 mg PO qhs calcium and vitamin D combination (Calcium 600+D) 1 tab PO tid diclofenac 75 mg PO bid ergocalciferol (Vitamin D2) hylan G-F 20 (Synvisc 16 mg/2 mL intra-articular solution) 16 mg intra-articular q7days R knee dx m17.11 multivitamin with iron (Iron 100 Plus) multivitamin with minerals (Centrum Silver Ultra Women's) sertraline 100 mg PO Daily sodium hyaluronate (Euflexxa 10 mg/mL intra-articular solution) 25 mg intra- articular q7days sodium hyaluronate (Euflexxa 10 mg/mL intra-articular solution) 25 mg intra- articular q7days spironolactone 25 mg PO Initial Wt: 02/06 59.4 kg 131 lb Physical Exam: (relevant to the procedure, including heart and lung evaluation) General: Alert and oriented x3 with proper grooming and hygiene Eyes: Pupils are equal and reactive to light with accommodation. Extraocular lids are intact Throat: Deferred due to COVID-19 precautions Cardiac: Regular rate and rhythm with occasional PVC. No murmurs or gallops appreciated Lungs: Clear to auscultation throughout with no wheezing, rales or rhonchi Abdomen: Nonobese, nondistended, nontender with NABS Extremities: Right knee: Range of motion is from 6 degrees of extension to 90 degrees of flexion patient has visible varus malalignment. She experiences medial joint line tenderness when knee is palpated in the flexed position. Her patella is not mobile due to arthritic change in the patellofemoral joint. She has no varus or valgus laxity with stressing. AP drawer sign Bebe test are negative. Patient is neurovascular intact in the right lower extremity. Neuro: Cranial nerves II through XII intact no motor or sensory deficit Skin: Normal in appearance with no open skin areas or discharge Admission Exam Per Admitting Provider Physical Exam: (relevant to the procedure, including heart and lung evaluation) General: Alert and oriented x3 with proper grooming and hygiene Eyes: Pupils are equal and reactive to light with accommodation. Extraocular lids are intact Throat: Deferred due to COVID-19 precautions Cardiac: Regular rate and rhythm with occasional PVC. No murmurs or gallops appreciated Lungs: Clear to auscultation throughout with no wheezing, rales or rhonchi Abdomen: Nonobese, nondistended, nontender with NABS Extremities: Right knee: Range of motion is from 6 degrees of extension to 90 degrees of flexion patient has visible varus malalignment. She experiences medial joint line tenderness when knee is palpated in the flexed position. Her patella is not mobile due to arthritic change in the patellofemoral joint. She has no varus or valgus laxity with stressing. AP drawer sign Bebe test are negative. Patient is neurovascular intact in the right lower extremity. Neuro: Cranial nerves II through XII intact no motor or sensory deficit Skin: Normal in appearance with no open skin areas or discharge Principal Diagnosis right knee osteoarthritis Discharge Exam Right knee: Outer dressing is removed. Silver lines in place clean dry and intact. Patient is able to perform active straight leg raise test. She is able to actively extend 0 degrees and flex to 80 degrees. She is able to dorsi and plantarflex her foot without issue. Quad strength is 4 out of 5. Patient is neurovascular intact. Discharge Data Allergies Allergy/AdvReac Type Severity Reaction Status Date / Time naproxen Allergy Intermediate Rash Verified 02/15/22 07:42 nitrofurantoin Allergy Intermediate Rash Verified 02/15/22 07:42 [From Macrobid] Sulfa (Sulfonamide Allergy Intermediate Welts/Rash Verified 02/15/22 07:42 Antibiotics) amoxicillin [From Augmentin] AdvReac Intermediate Nausea Verified 02/15/22 07:42 clavulanic acid AdvReac Intermediate Nausea Verified 02/15/22 07:42 [From Augmentin] meloxicam AdvReac Mild Nausea Verified 02/15/22 07:42 silodosin AdvReac Mild N/V Verified 02/15/22 07:42 tramadol AdvReac Mild Nausea Verified 02/15/22 07:42 Procedures Performed Operation Date: 12/28/21 08:15 <No data on this case meets the specified criteria> Operation Date: 02/15/22 09:10 Actual Procedures p Right Total Knee Arthroplasty(Right) - Nahum Mathews MD Ordered Studies 02/15/22 05:00 US - OR guided needle placemen Routine Hospital Course (1) S/P total knee arthroplasty: Patient had an uneventful overnight stay following total knee arthroplasty. She is doing very well this morning. She is anxious to be discharged home. The plan is to discharge her around lunchtime today and she will begin in-home physical therapy starting tomorrow. PT/OT DVT prophylaxis with Eliquis and HOWARD stockings Pain controlled p.o. medication Keep Silverlon in place Ice with easy wrap Immobilizer use for the first 48 hours postoperatively. Weightbearing as tolerated with walker assistance Plan is for discharge home today with in-home physical therapy for the first 2 weeks postoperatively Follow-up with [facility]opedics as previously scheduled With questions contact our clinic at [phone] Total Time Total Time Spent Total Time Spent (In Minutes): 20 mins Discharge Plan Discharge Items Patient Disposition: Home - Home Health Services Reason For Visit: Right Knee Osteoarthritis Discharge Diagnosis: Right knee osteoarthritis Activity: As commented below Lifting: None Bathing: Keep incision dry Bathing Comment: May shower tomorrow Sexual Activity: Wait until after follow-up appointment Exercise/Sports: Wait until after follow-up appointment Driving/Machine Use: No driving until cleared by occupational safety specialist Weightbearing: Right weightbearing Weightbearing Comment: as tolerated with walker assistance Non-emergency contact: Surgeon Call non-emergency contact if: you have any medication questions, your pain is not controlled, your temperature is above 101.5, your wound has increased d rainage and your wound pain has increased Follow-up/Referrals: Elyssa Tolliver DO [Primary Care Provider] - Diet: Regular Addtl Attending Provider Instructions: Post-operative Instructions Dear Patient and Family/Friends, Before you are discharged from the hospital, it is important to know what to expect when you get home after surgery. To that end, we have created this sheet of discharge instructions which covers many commonly asked questions. Make sure you go through this sheet in its entirety with your nurse before you are discharged. Please note that we will go over the specifics of your surgery and recovery when you return for your first post-operative visit. Sincerely, Dr. Mathews Medication 1. Resume your daily Eliquis for blood clot prevention 2. Oxycodone 5 mg: take 1-2 tabs every 4-6 hours as needed for pain relief. A prescription for this medication will be sent to your pharmacy. 3. Diclofenac Sodium 75 mg: take 1 tab twice daily for 30 days post operatively for pain and inflammation relief. A prescription for this will be sent to your pharmacy with 1 refill. 4. Extra Strength Tylenol 500 mg: take 2 tabs every 6-8 hours for additional pain relief if needed. Please purchase. Pain Expect to be in a fair amount of pain after surgery. Remember, our goal is not to eliminate your pain, but to make it tolerable. It is a good idea to stay ahead of your pain by taking the medications you were prescribed once you get home. Typically, the pain starts improving 3-7 days after surgery. You should start weaning off the narcotic pain medication (oxycodone, hydrocodone, hydromorphone, morphine) as soon as your pain improves. Please call our office if your pain is not adequately controlled. Ice Ice your operative site at least 5 times a day for 15-30 minutes at a time. Make sure you have a thin cloth between the ice or cooling unit and your skin to prevent barajas bite. This is especially important if you received a nerve block. Continue icing your operative site for the first 5-7 days after surgery, then as needed. Diet/Nausea/Vomiting Start by drinking clear liquids and eating crackers. If you can tolerate this, then you may resume your normal diet. If you feel nauseated or vomit, take Zofran/ondansetron (if prescribed). Please call our office if you have intractable nausea or vomiting, or, if after hours, you may go to the Emergency Room for help. Constipation Constipation is a common side effect of narcotic pain medication. If you have not had a bowel movement within 2 days after surgery, we recommend purchasing an over the counter laxative such as Milk of Magnesia, Dulcolax, or Miralax from a local pharmacy, and taking it as instructed. Call our clinic if any questions. Nerve block The anesthesia team sometimes places a nerve block to help with post-operative pain control. This results in significant numbness and inability to move the extremity. The nerve block usually wears off in 8-12 hours, but sometimes can last up to 24 hours. Please call our office if you are still unable to move your extremity after 24 hours, unless you received a pain pump to take home. Nerve blocks typically wear off quickly, so start taking pain medication as soon as you start feeling soreness near your surgical site. Weight bearing and Range of Motion. Do not bear any weight through your operative extremity immediately after surgery. If you had upper extremity surgery, do not lift anything with that arm. If you are in a knee brace, keep it locked in place until your follow-up. We will discuss your weight bearing, range of motion, and lifting restrictions in detail at your first post-operative appointment. Continuous Passive Motion (CPM) Machine If you were prescribed a CPM machine, it will start after your first post- operative appointment, at which time we will give you instructions on the range of motion settings and duration of treatment Physical therapy You will be given a prescription for physical therapy or occupational therapy at your first post-operative appointment. Typically, patients start therapy within 1 week of surgery Wound care and showering We will inspect your wound at your first post-operative visit, and may do a dressing change at that time. Most patients will be in a water-proof dressing that is removed 14 days after surgery. It is normal to see some dried blood on the dressing. Do not remove your dressing, paper strips or sutures yourself unless you are given permission. Showering is allowed the day after surgery. Do not scrub or remove any dressings. The wound should not be submerged underwater (i.e. in a bathtub or pool) until 4 weeks after surgery HOWARD stockings If you were given white stockings, these are to be worn at all times except to shower (on both legs) for the first 2 weeks after surgery. Driving You may not drive while taking narcotic pain medication or while in a cast, splint, sling or brace. You, the patient, need to make the final determination about when you are safe t o drive, however, the earliest you may consider driving after surgery is below: Hand/Wrist/Elbow Surgery: 3 days Shoulder Surgery: 2 weeks Hip,/Knee/Ankle Surgery: 4 weeks Fracture repair: 6 weeks Return to Work Your return to work depends on what surgery was done and what type of work you do. Please bring any paperwork your employer needs completed to your first post-operative visit. Also, bring a description of your job duties, as this helps us to understand what risks you may face at work. Travel Avoid long distance travel (greater than 1 hour) in airplanes and cars for the first 6 weeks after surgery. If you must travel, you need to have a Doppler ultrasound done before you travel to rule out a blood clot in your legs. Follow-up You should have a follow-up appointment already scheduled 1-2 days after surgery. If not, please contact our office to make this appointment before you leave the hospital. When to call the office It is normal to have swelling and bruising in the limb that was operated on. This will improve with time. It is also normal to have fevers for the first 2 days after surgery. Reasons you should call your doctor include: Uncontrolled pain; Nausea, vomiting, or constipation that does not improve with medication; Fevers over 101.5, chills, sweats; Drainage or bleeding from the wound; Foul odor; Spreading areas of redness; Any other concerns Pending Studies at Discharge: No Stand-Alone Forms: [facility], Smoking Cessation Medications and DC Order Prescriptions: New oxycodone 5 mg tablet 5 mg PO Q4H MDD Ongoing treatment Qty: 28 0RF diclofenac sodium 75 mg tablet,delayed release (DR/EC) 75 mg PO BID 30 Days Qty: 60 1RF Continued atorvastatin 40 mg Tablet 40 mg PO QAM sertraline 100 mg Tablet 150 mg PO QAM spironolactone 25 mg Tablet 12.5 mg PO QAM cholecalciferol (vitamin D3) [Vitamin D3] 1,000 unit Capsule 1,000 unit PO QAM Calcium 600 + D(3) 600 mg calcium- 200 unit Capsule 1 cap PO QAM Centrum Silver Women 8 mg iron-400 mcg-300 mcg Tablet 1 tab PO QAM vitamin C-biotin 50 mg -1,250 mcg Tablet,Chewable 1 tab PO BID Eliquis 5 mg Tablet 5 mg PO BID Saline Nasal 0.65 % Aerosol,[place] 1 spray INTRANASAL BID PRN (Reason: sinus congestion) ferrous sulfate 325 mg (65 mg iron) Tablet 325 mg PO QAM Discharge Orders: Discharge Order (Routine); Ordered 02/16/22 Ordered By: Guy Madrid Admission Data Admit Date/Time: 02/15/22 11:21 Attending Provider: Nahum Mathews Admit Provider: Nahum Mathews Primary Care Provider: Elyssa Tolliver Other Providers: [facility],Home Healthcare
== END 2022-02-16 14:22 | disposition home health service (06) ==
LOC: PACUINP 07:11 → ASU 07:11 → 3E 13:53
DX: Z88.1 Allergy status to other antibiotic agents; Z88.6 Allergy status to analgesic agent; Z88.2 Allergy status to sulfonamides; Z79.899 Other long term (current) drug therapy; Z88.8 Allergy status to other drugs, medicaments and biological substances; M17.11 Unilateral primary osteoarthritis, right knee; M11.261 Other chondrocalcinosis, right knee; Z79.82 Long term (current) use of aspirin